=== PATIENT | male | born 1955 | race Asian ===

== ENCOUNTER → 2018-01-22 10:21 | Outpatient (CLI) | payer OTHER, SELFPAY ==
[2018-01-22 11:21] LABS: Hemoglobin A1C% w Est Avg Glu 8.5 % (4.0-6.0)
[2018-01-22 11:33] LABS: Alanine Aminotransferase 25 IU/L (21-72); Albumin 4.6 g/dL (3.5-5.0); Albumin Globulin Ratio 1.6 (1.0-2.8); Alkaline Phosphatase 58 U/L (38-126); Aspartate Aminotransferase 20 IU/L (17-59); BUN Creatinine Ratio 18.8 (6-22); Bilirubin Total 1.1 mg/dL (0.2-1.3); Calcium 9.4 mg/dL (8.4-10.2); Cholesterol 154 mg/dL (140-199); Estimated Glomerular Filt Rate > 60.0 mL/min (>60); Globulin 2.8 g/dL (1.7-4.1); Glucose 214 mg/dL (80-110); HDL Cholesterol 41 mg/dL (40-60); HEMOLYSIS < 15 (0-50); LDL Cholesterol Calculated 76 mg/dL (<100); Potassium 4.8 mmol/L (3.4-5.1); Sodium 139 mmol/L (137-145); Total Protein 7.4 g/dL (6.3-8.2); Triglycerides 187 mg/dL (35-150)
[2018-01-22 12:01] LABS: Prostate Specific Antigen Scrn 1.09 ng/mL (0.1-4.0)
== END ==
PROVIDERS: PCP Family Medicine; Visit Provider Family Medicine
DX: I10 Essential (primary) hypertension (principal); E11.9 Type 2 diabetes mellitus without complications; Z12.5 Encounter for screening for malignant neoplasm of prostate
CPT/HCPCS: 36415; 80053; 80061; 83036; G0103

== ENCOUNTER → 2018-04-27 10:37 | Outpatient (CLI) | payer OTHER, SELFPAY ==
[2018-04-27 11:45] LABS: Hemoglobin A1C% w Est Avg Glu 7.5 % (4.0-6.0)
[2018-04-27 11:47] LABS: Alanine Aminotransferase 34 IU/L (21-72); Albumin 4.5 g/dL (3.5-5.0); Albumin Globulin Ratio 1.5 (1.0-2.8); Alkaline Phosphatase 60 U/L (38-126); Aspartate Aminotransferase 31 IU/L (17-59); BUN Creatinine Ratio 16.7 (6-22); Bilirubin Total 1.1 mg/dL (0.2-1.3); Blood Urea Nitrogen 15 mg/dL (9-20); Calcium 9.3 mg/dL (8.4-10.2); Carbon Dioxide 26 mmol/L (22-32); Chloride 103 mmol/L (98-107); Estimated Glomerular Filt Rate > 60.0 mL/min (>60); Glucose 144 mg/dL (80-110); HEMOLYSIS < 15 (0-50); Potassium 4.2 mmol/L (3.4-5.1); Sodium 141 mmol/L (137-145); Total Protein 7.5 g/dL (6.3-8.2)
== END ==
PROVIDERS: Family Provider Family Medicine; PCP Family Medicine; Visit Provider Family Medicine
DX: E11.9 Type 2 diabetes mellitus without complications (principal)
CPT/HCPCS: 36415; 80053; 83036

== ENCOUNTER 2018-11-20 13:02 | Day surgery (SDC) | payer OTHER, SELFPAY ==
--- NOTE | 2018-11-20 | PATH_ITS ---
[facility] Accession Number: [id number] . 01 Material submitted: . COLON POLYP AT 10CM . 02 Diagnosis: Colon, Polyp At 10 CM, Biopsy: Tubular adenoma. [facility]/11/23/2018 . 02 Electronically signed: . Cailin Carpio MD, Pathologist NPI- [id number] . 01 Gross description: . Received one formalin-filled container labeled with the patient's name and labeled colon polyp at 10 cm. The specimen consists of a 0.6 cm portion of tissue and friable material, entirely submitted in one cassette. ([id number]) /FRR . 02 Pathologist provided ICD-10: D12.6 . 02 CPT . 059464 Performed at: 01 [facility] [address] [id number] MD Mauro Pandey MD Phone: [phone] Performed at: 02 [facility] [address] [place], [place] [id number] MD Cailin Carpio MD Phone: [phone]
[2018-11-20 13:25] VITALS: BMI 26.1
[2018-11-20 13:31] VITALS: BP 149/90; PULSE 67; RESP 15; TEMP 36.6; O2SAT 99
[2018-11-20] MEDS: SODIUM CHLORIDE 0.9% 1,000 ML 200 ML IV (13:41)
--- NOTE | 2018-11-20 13:55 | PM.HP.1 ---
History of Present Illness Date Patient Seen: 11/20/18 Time Patient Seen: 13:55 Chief complaint: [id number] Narrative: 63-year-old male who presents for colorectal screening. His last examination for such was many years ago. In fact, he states he did have a colonoscopy but it was at least 10 years or longer since that examination. On further history today he denies any gastrointestinal symptoms. No nausea, vomiting, loss of appetite, unexplained weight loss, abdominal pain, change in bowel habits, melena, hematochezia, bright red blood per rectum, diarrhea, or constipation. Patient History Medical History Asthma (Chronic Unknown) Diabetes (Chronic Unknown) Erectile dysfunction (Chronic Unknown) Hypertension (Chronic Unknown) Surgical History History of colonoscopy (Acute) Status post knee surgery Family History Father Hypertension Grandfather Hypertension Social History household members: spouse Smoking Status: Former smoker Family & Social History Family History Father Hypertension Grandfather Hypertension Social History: household members spouse Tobacco & Substance use: Smoking Status Former smoker Meds Home Medications Medication Instructions Recorded Confirmed Type PreserVision AREDS 1 sgl PO BID #0 05/15/16 11/20/18 History tadalafil 5 mg tablet 5 mg PO QDAY PRN tab 01/30/18 11/20/18 History Glucose: Test Strips #1 ea 05/01/18 11/20/18 History lancets #50 each 05/01/18 11/20/18 History metformin 500 mg tablet 1,000 mg PO BIDCC #120 tab 10/05/18 11/20/18 Rx losartan 25 mg tablet 25 mg PO QAM #90 tab 10/12/18 11/20/18 Rx glimepiride 1 mg tablet 2 mg PO BID #120 tab 11/08/18 11/20/18 Rx Allergies Allergy/AdvReac Type Severity Reaction Status Date / Time No Known Drug Allergies Allergy Verified 11/20/18 13:23 Review of Systems Review of Systems All systems reviewed & are unremarkable except as noted in HPI and below Exam Vital Signs (past 8 hours): - 11/20/18 13:31 Temperature 97.8 F Pulse Rate 67 Respiratory Rate 15 Blood Pressure 149/90 H Pulse Oximetry 99 Oxygen Delivery Method Room Air Narrative Exam Narrative: Well-nourished well-developed male in no acute distress. Alert oriented x3. Neck supple Regular rate rhythm. No audible wheezes Abdomen soft, nondistended, nontender Extremities show no clubbing or cyanosis Objective Labs Labs: No recent laboratory or radiographic studies for review. Fingerstick blood sugar today was 181. Assessment & Plan Assessment & Plan narrative: 63-year-old male requiring colorectal screening. Last endoscopy was well over 10 years ago. Colonoscopy is once again currently recommended. Technical details of the procedure were discussed. Risks, benefits, alternatives were explained. Risks including but not limited to sedation, aspiration, bleeding, pain, missed lesion, incomplete examination, need for further radiographic studies, colonic perforation, need for major abdominal surgery, and all attendant risks of major surgery were explained in detail. All questions were answered to his satisfaction, and he voiced understanding. Consent was placed on the chart. We will proceed as above.
--- NOTE | 2018-11-20 13:58 | PM.PREOP ---
Pre-operative Note Interval Note History & Physical reviewed/Exam performed by Physician: Yes Changes to H&P: No H&P completed within 30 days and has changed as indicated here:: Patient seen and examined in the preoperative area today. History and physical examination placed on the chart. Obviously, no changes in the last 15 min. Proceed with colonoscopy today as planned. ASA Class (for procedural sedation): II
[2018-11-20] MEDS: MIDAZOLAM 5 MG/5 ML VIAL IV (14:09)
[2018-11-20] MEDS: fentaNYL 250 MCG/5 ML INJ IV (14:10)
--- NOTE | 2018-11-20 14:21 | PM.OP.ENDO ---
Operative Date/Time/Diagnoses Date of procedure: 11/20/18 Time of procedure: 14:21 Pre-op diagnosis: Colorectal screening Post-op diagnosis: other (Rectal polyp but otherwise normal colon and rectum) Procedure & Clinicians Study performed: 1. Sedation per surgeon 2. Colonoscopy with hot snare polypectomy Same procedure as scheduled: Yes Indications: 63-year-old male who presents for colorectal screening. Last examination was over 10 years ago. Colonoscopy is currently recommended. Surgeon: Shaheen Beatty Procedure Notes SCOAP/Timeout: Yes Procedure in detail: After obtaining informed consent, the patient was brought to the GI suite and placed in the left lateral decubitus position on the examination table. After placement of appropriate monitors, the patient was given incremental doses of Versed and Fentanyl until an appropriate level of sedation was achieved. A time out was held per SCOAP protocol. A digital rectal examination was performed and did not reveal any masses or obstructing lesions. The colonoscope was gently passed into the patient's anus and the entire colon navigated to the level of the cecum with minimal difficulty. Terminal ileum was intubated and noted to be grossly normal. Once in the cecum, the scope was withdrawn being sure to go before and beyond all mucosal folds and prominences and get an excellent examination. The findings are noted above. At the level of the rectal vault, the scope was retroflexed and the internal anal canal was examined. The scope was straightened and air aspirated from the colon. The instrument was removed from the patient's body and the procedure was concluded. The patient was allowed to awaken from sedation without difficulty and taken to the post-anesthesia care unit in good condition. Scope withdrawal time: 11:31 min Sedation minutes: 19 Findings: polyp Specimen(s): other (Rectal polyp at 10 cm) Complications: none Recommendations: Colonscopy in 5 years, High fiber diet and Will call with biopsy results Plan for aftercare: 1. Discharge home Follow up: as needed Disposition: PACU
[2018-11-20 14:24] VITALS: BP 127/80; PULSE 64; RESP 17; TEMP 36.4; O2SAT 96
[2018-11-20 14:28] VITALS: BP 121/81; PULSE 63; RESP 14; O2SAT 94
[2018-11-20 14:34] VITALS: BP 126/77; PULSE 63; RESP 14; O2SAT 93
[2018-11-20 14:39] VITALS: BP 117/85; PULSE 60; RESP 17; O2SAT 95
--- NOTE | 2018-11-20 14:49 | SUR.PHASEII ---
Pt drowsy. Declined po intake. Call light within reach. Spouse called by phone and notified of patient status.
[2018-11-20 15:01] VITALS: BP 131/81; PULSE 59; TEMP 36.4; O2SAT 97
== END 2018-11-20 13:07 | disposition home or self-care (01) ==
PROVIDERS: Visit Provider Surgery
PROC: 0DJD8ZZ Inspection of Lower Intestinal Tract, Via Natural or Artificial Opening Endoscopic (ICD-10-PCS; CPT 45378; principal; 2018-11-20 15:00)
DX: Z12.11 Encounter for screening for malignant neoplasm of colon (principal); D12.8 Benign neoplasm of rectum; J45.909 Unspecified asthma, uncomplicated; E11.9 Type 2 diabetes mellitus without complications; I10 Essential (primary) hypertension; Z79.84 Long term (current) use of oral hypoglycemic drugs; Z87.891 Personal history of nicotine dependence
CPT/HCPCS: 45385; 88305; 99152; J2250; J3010

== ENCOUNTER → 2020-03-13 14:26 | Outpatient (CLI) | payer OTHER, SELFPAY ==
[2020-03-15 12:18] LABS: COVID19 Sendout Not Detected (Not Detected)
== END ==
PROVIDERS: PCP Family Medicine; Visit Provider Physician Assistant
DX: Z03.818 Encounter for observation for suspected exposure to other biological agents ruled out (principal)
CPT/HCPCS: 87635

== ENCOUNTER → 2021-04-25 13:00 | Outpatient (CLI) | payer MEDICARE, OTHER, SELFPAY ==
[2021-04-25 15:57] LABS: COVID19 -Nasal RAPID Negative (Negative)
== END ==
PROVIDERS: PCP Family Medicine; Visit Provider Nurse Practitioner
DX: Z20.822 Contact with and (suspected) exposure to COVID-19 (principal)
CPT/HCPCS: 87635; C9803

== ENCOUNTER 2022-08-26 09:21 | Emergency (ER) | payer MEDICARE, OTHER, SELFPAY ==
[2022-08-26 09:36] VITALS: BP 139/91; PULSE 82; RESP 14; TEMP 36.5; O2SAT 99; BMI 22.3
[2022-08-26] MEDS: METOCLOPRAMIDE 10 MG/2 ML INJ IV (12:37)
[2022-08-26 12:39] VITALS: BP 133/91; PULSE 84; RESP 16; O2SAT 96
--- NOTE | 2022-08-26 13:21 | ED_ITS ---
HPI - Recheck/Abnormal Lab/Rx <Mandeep Hartmann PA-C - Last Filed: 08/26/22 13:33> General Chief Complaint: Recheck/Abnormal Lab/Rx Stated Complaint: hicups since Friday night Time Seen by Provider: 08/26/22 12:16 Source: patient Mode of arrival: Ambulatory History of Present Illness HPI narrative: 67-year-old male with past medical history hypertension, diabetes presents to the ED with 4 days of intractable hiccups. Patient states that he has been experiencing nonstop hiccups for the past 4 days with no relief. Patient denies a history of acid reflux, GERD, however he does know that he has a feeling of frequent phlegm in his throat, despite having no cold symptoms. Patient states that the phlegm sensation has been ongoing for several months. Patient denies any other symptoms including fever, chills, cough, rhinorrhea, chest pain, shortness of breath, nausea, vomiting, abdominal pain. Patient denies any ear pain, changes in hearing. Related Data Home Medications Medication Instructions Recorded Confirmed vitamins A,C,T-tkss-wdtdcp 14,320 1 sgl PO BID ##0 05/15/16 11/20/18 unit-226 mg-200 unit capsule (PreserVision AREDS) tadalafil 5 mg tablet (Cialis) 5 mg PO QDAY PRN sexual activity 01/30/18 11/20/18 Glucose: Test Strips #1 ea 05/01/18 11/20/18 lancets (Accu-Chek Softclix #50 ea 05/01/18 11/20/18 Lancets) Previous Rx's Medication Instructions Recorded metformin 500 mg tablet 1,000 mg PO BIDCC #120 tabs 10/05/18 (Glucophage) losartan 25 mg tablet (Cozaar) 25 mg PO QAM #90 tabs 10/12/18 glimepiride 1 mg tablet (Amaryl) 2 mg PO BID #120 tabs 11/08/18 metoclopramide HCl 10 mg tablet 10 mg PO Q8HR PRN nausea and 08/26/22 (Reglan) vomiting #30 tabs Allergies Allergy/AdvReac Type Severity Reaction Status Date / Time No Known Drug Allergies Allergy Verified 08/26/22 09:40 Review of Systems <Mandeep Hartmann PA-C - Last Filed: 08/26/22 13:33> Review of Systems ROS Unobtainable: All systems reviewed & are unremarkable except as noted in HPI and below Constitutional Constitutional: Denies chills, Denies fatigue, Denies fever(s), Denies frequent falls, Denies lethargy and Denies weakness Comments: Intractable Hiccups Eyes Eyes: Denies change in vision, Denies eye discharge, Denies irritation and Denies loss of vision ENT Ears, Nose, Mouth, and Throat: Denies change in voice, Denies dizziness, Denies neck pain, Denies sore throat and Denies throat swelling Cardiovascular Cardiovascular: Denies chest pain, Denies irregular heart rhythm, Denies lightheadedness, Denies palpitations, Denies dyspnea, Denies dyspnea on exertion and Denies orthopnea Respiratory Respiratory: Denies cough, Denies dyspnea, Denies dyspnea on exertion and Denies wheezing Gastrointestinal Gastrointestinal: Denies abdominal pain, Denies change in bowel habits, Denies diarrhea, Denies nausea and Denies vomiting Genitourinary Genitourinary: Denies hematuria, Denies flank pain, Denies urinary incontinence and Denies urinary urgency Musculoskeletal Musculoskeletal: Denies back pain, Denies muscle weakness, Denies neck pain, Denies numbness and Denies tingling Integumentary/Breasts Skin/Breast: Denies pruritus, Denies erythema, Denies rash and Denies wounds Neurologic Neurologic: Denies behavioral changes, Denies confusion, Denies dizziness, Denies frequent falls, Denies loss of vision, Denies numbness, Denies tingling and Denies weakness Psychiatric Psychiatric: Denies anxiety, Denies behavioral changes, Denies confusion, Denies depression, Denies homicidal ideation and Denies suicidal ideation Endocrine Endocrine: Denies fatigue, Denies flushing and Denies palpitations Hematologic/Lymphatic Hematologic/Lymphatic: Denies easy bruising Allergic/Immunologic Allergic/Immunologic: Denies urticaria, Denies throat swelling and Denies wheezing Patient History <Mandeep Hartmann PA-C - Last Filed: 08/26/22 13:33> Medical History Asthma (Unknown) Diabetes (Unknown) Erectile dysfunction (Unknown) Hypertension (Unknown) Surgical History History of colonoscopy Status post knee surgery Family History Father Hypertension Grandfather Hypertension Social History household members: spouse Smoking Status: Former smoker Smoking Status: Former smoker alcohol intake frequency: 0-2 drinks per day Substance Use Type: does not use Exam <Mandeep Hartmann PA-C - Last Filed: 08/26/22 13:33> Narrative Exam Narrative: Const General:?cooperative, healthy appearing and comfortable [facility] Head:?normal to inspection Ears:?hearing grossly normal bilaterally Nose:?external nose normal Face and sinus:?normal facial exam and sinuses nontender Mouth:?oral mucosae normal Throat:?posterior oropharynx normal Eyes General:?appearance normal, both eyes and all related structures Neck Neck:?normal visual inspection and no lymphadenopathy noted Resp Effort & Inspection:?normal respiratory effort Auscultation:?clear to auscultation bilaterally Cardio Rate:?regular rate Rhythm:?regular rhythm Neuro General:?patient alert, patient awake and patient oriented x3 Initial Vital Signs Initial Vital Signs: Vital Signs Temperature 97.7 F 08/26/22 09:36 Pulse Rate 82 08/26/22 09:36 Respiratory Rate 14 08/26/22 09:36 Blood Pressure 139/91 H 08/26/22 09:36 Pulse Oximetry 99 08/26/22 09:36 Oxygen Delivery Method 08/26/22 09:36 <Dina Lockwood DO - Last Filed: 08/27/22 09:20> Initial Vital Signs Initial Vital Signs: Vital Signs Temperature 97.7 F 08/26/22 09:36 Pulse Rate 82 08/26/22 09:36 Respiratory Rate 14 08/26/22 09:36 Blood Pressure 139/91 H 08/26/22 09:36 Pulse Oximetry 99 08/26/22 09:36 Oxygen Delivery Method 08/26/22 09:36 Course <Mandeep Hartmann PA-C - Last Filed: 08/26/22 13:33> Orders Ordered: Discontinued Medications Metoclopramide HCl (Metoclopramide 10 Mg/2 Ml Inj) 10 mg IV NOW ONE Stop: 08/26/22 12:16 Last Admin: 08/26/22 12:37 Dose: 10 mg Documented By: HUGO Vital Signs Vital signs: Vital Signs - 8 hr 08/26/22 09:36 08/26/22 12:39 Temperature 97.7 F Pulse Rate 82 84 Respiratory Rate 14 16 Blood Pressure 139/91 H 133/91 H Pulse Oximetry 99 96 Oxygen Delivery Method Room Air Room Air <Dina Lockwood DO - Last Filed: 08/27/22 09:20> Orders Ordered: Discontinued Medications Metoclopramide HCl (Metoclopramide 10 Mg/2 Ml Inj) 10 mg IV NOW ONE Stop: 08/26/22 12:16 Last Admin: 08/26/22 12:37 Dose: 10 mg Documented By: HUGO Vital Signs Vital signs: Vital Signs - 8 hr 08/26/22 09:36 08/26/22 12:39 Temperature 97.7 F Pulse Rate 82 84 Respiratory Rate 14 16 Blood Pressure 139/91 H 133/91 H Pulse Oximetry 99 96 Oxygen Delivery Method Room Air Room Air MDM - Recheck/Abnormal Lab/Rx <Mandeep Hartmann PA-C - Last Filed: 08/26/22 13:33> [facility] Narrative Medical decision making narrative: 67-year-old male with past medical history hypertension, diabetes presents to the ED with 4 days of intractable hiccups. No foreign objects noted in bilateral ears on exam. Likely patient's symptoms caused due to acid reflux. Recommend Pepcid AC twice daily for the next 2-3 weeks. Also recommend Reglan up to 3 times a day if symptoms recur. ED return precautions were discussed with patient. Patient verbalized understanding. Discharge Plan Departure Patient Disposition: Home Clinical Impression: Hiccups Instructions: DI for Hiccups Activity Restrictions/Additional Instructions: Were evaluated in the ED today for persistent hiccups for the past 4 days. Your symptoms resolved while you were in the emergency room, you were also given a dose of Reglan. The frequent phlegm that you feel in your throat could be caused due to acid reflux, which can also be a factor to aggravate hiccups. You may take Pepcid AC twice daily, once before breakfast and once before dinner for the next 2-3 weeks, which will control the acid production. You may also take Reglan 3 times a day if your hiccups reoccur. Return to the ED if you have any chest pain, shortness of breath. Prescriptions: New metoclopramide HCl [Reglan] 10 mg tablet 10 mg PO Q8HR PRN (Reason: nausea and vomiting) Qty: 30 0RF No Action tadalafil [Cialis] 5 mg tablet 5 mg PO QDAY PRN (Reason: sexual activity) (DME) Glucose: Test Strips 0 .Route .MEDSUPPLY Qty: 1 Label Comments: Use to test blood glucose once daily. Rx Instructions: As directed (DME) lancets [Accu-Chek Softclix Lancets] misc See Dose Instructions .ROUTE .MEDSUPPLY Qty: 50 Rx Instructions: once daily PreserVision AREDS 1 EACH capsule 1 sgl PO BID Qty: 0 metformin [Glucophage] 500 mg tablet 1,000 mg PO BIDCC Qty: 120 1RF losartan [Cozaar] 25 mg tablet 25 mg PO QAM Qty: 90 0RF glimepiride [Amaryl] 1 mg tablet 2 mg PO BID Qty: 120 0RF Referrals: Mercedes Hayes DO [Primary Care Provider] - Visit Report Forms: Patient Portal/API <Dina Lockwood DO - Last Filed: 08/27/22 09:20> Cosign ED Attending Daciaature Attestation: I was immediately available in the department for consultation. Documentation has been reviewed. I agree with assessment and plan.
== END 2022-08-26 13:25 | disposition home or self-care (01) ==
PROVIDERS: Emergency Provider Student in an Organized Health Care Education/Training Program; PCP Family Medicine
DX: R06.6 Hiccough (principal)
CPT/HCPCS: 96374; 99283; J2765

== ENCOUNTER → 2023-01-21 11:17 | Outpatient (CLI) | payer MEDICARE, OTHER, SELFPAY | PROVIDERS: PCP Nurse Practitioner Family; Referring Provider Orthopaedic Surgery Foot and Ankle Surgery; Visit Provider Orthopaedic Surgery Foot and Ankle Surgery | DX: Z01.818 Encounter for other preprocedural examination (principal) | CPT/HCPCS: 93005 ==

== ENCOUNTER 2023-03-07 06:17 | Day surgery (SDC) | payer MEDICARE, OTHER, SELFPAY ==
[2023-02-27 13:26] VITALS: BMI 24.3
[2023-03-07] VITALS (13 sets, daily range): BP systolic 93–140; BP diastolic 59–90; PULSE 66–89; RESP 12–21; TEMP 36.1–36.6; O2SAT 94–100; BMI 24.3
--- NOTE | 2023-03-07 06:00 | DI.RAD.S_ITS ---
PROCEDURE: XR KNEE LT 1TO2V INDICATIONS: tka TECHNIQUE: 2 view(s) of the knee acquired. COMPARISON: [facility] [place], XR KNEE ARTHRITIC SERIES BI, 01/14/2023, 13:52. FINDINGS: Bones: Patient is status post knee joint arthroplasty. Hardware components are in expected positions. Visualized bony structures are intact. Soft tissues: Overlying postoperative changes are noted. IMPRESSION: Postsurgical changes following knee arthroplasty. There is soft tissue edema. Dictated by: Jair Acharya M.D. on 03/07/2023 at 13:51 Approved by: Jair Acharya M.D. on 03/07/2023 at 13:51
[2023-03-07] MEDS: LACTATED RINGERS 1,000 ML 42 ML IV ×2 (07:22→08:52)
[2023-03-07] MEDS: PREGABALIN 75 MG CAPSULE PO (07:22)
[2023-03-07] MEDS: ACETAMINOPHEN 325 MG TABLET 975 MG PO (07:22)
[2023-03-07] MEDS: CELECOXIB 200 MG CAPSULE PO (07:22)
--- NOTE | 2023-03-07 07:28 | PM.PREOP ---
Pre-operative Note Interval Note History & Physical reviewed/Exam performed by Physician: Yes Changes to H&P: No
[2023-03-07] MEDS: CEFAZOLIN 2 GM/100 ML PREMIX 100 ML IV (07:53)
[2023-03-07] MEDS: BUPIVACAINE LIPOSOME 266 MG/20 ML VIAL INJ (08:19)
[2023-03-07] MEDS: BUPIVACAINE 0.5% W/ EPI (PF) 30 ML VIAL INJ (08:21)
--- NOTE | 2023-03-07 08:23 | SUR.OPER ---
Supine on padded OR bed. Pillow under head, arms secured on padded armboards <90 degree abduction. Safety belt across torso. Non-operative leg secured with tape over blanket over lower leg. Operative leg secured in [place]. Foam padded brace at thigh of operative leg.
--- NOTE | 2023-03-07 10:36 | P.OP_ITS ---
Operative Date/Time/Diagnoses Date of procedure: 03/07/23 Time of procedure: 10:36 Pre-op diagnosis: Knee arthritis left M17.12 Post-op diagnosis: same Procedure & Clinicians Procedure: Total knee arthroplasty left CPT code 19529 Same procedure as scheduled: Yes Indications: The patient is a 67-year-old male with end-stage [id number] arthritis of the left knee with varus deformity. He is failed conservative treatment with bracing, physical therapy, oral medications, injectables and has been indicated for total knee arthroplasty. The risks and benefits of the procedure have been discussed with the patient and given the opportunity to ask questions. The risks of surgery include but are not limited to infection, malunion, nonunion, persistence of pain, damage to nerves and blood vessels, posttraumatic arthritis, DVT, PE, coardiopulmonary complications and . The patient expressed a thorough understanding of the risks and benefits of surgery and has elected to proceed. Consent was signed. During the operation, the services of a physician surgical instruments inspector were medically indicated and necessary to provide the exposure of the operative site for the surgical procedure and to maintain the limb in a proper position to carry out the operation safely and efficiently. Without a qualified drug safety assistant being present this would extended the operative procedure and made the procedure technically more difficult to perform. Surgeon: Karla Chandra Director Of Diagnostic Imaging: Kamala Oro Anesthesia Type: General, Spinal and Local Operative Notes Findings: End-stage full-thickness cartilage loss medial and patellofemoral cart apartments. Large osteophytes tricompartmental arthritis. Closure Type: primary Specimen(s): none sent Prosthetic devices, grafts, tissues, transplants, or devices: Holcomb and nephew journey bcs 2 Femur Oxinium size 6 Tibia size 6 Poly 11 mm Patella 35 x 9 round Estimated Blood Loss (mL): 50 Blood products transfused: none Tourniquet time (min): 102 Procedure in detail: Patient was seen in the preoperative area where the patient and site of surgery were identified in the operative knee was marked informed consent confirmed. This was the left knee. Patient received the appropriate preoperative antibiotics this was 2 g of Ancef. And other preoperative medications and was taken to the operating room placed on operating table in the supine position. Spinal anesthetic were administered. The operative extremity was then prepped and draped in the standard sterile fashion with a nonsterile tourniquet high on the thigh. Patient was placed on the green foam bolsters. A lateral post was placed at the level of the proximal thigh /trochanter area as a lateral post. Formal time-out procedure was performed confirming the patient's side and site of surgery and administration of appropriate preoperative antibiotics and implants were in the room accounted for. All were in agreement. Patient received a preoperative dose of tranexamic acid and then a 2nd dose at tourniquet release Patient was prepped and draped in the standard sterile fashion and the foot was placed into the [facility] leg dolan. This was taken into high flexion and the incision was marked out over the anterior knee to the level of the medial tubercle tubercle. The Esmarch was then used for exsanguination and the tourniquet was inflated to 250 mmHg. Was made through the skin and subcutaneous tissue in high flexion this was then brought down into 30? of flexion for the medial parapatellar arthrotomy. A marker pen was used to david the arthrotomy site for later repair. Joint fluid was evacuated. The anterior osteophytes and soft tissues were removed. Routine medial release was initially made along the medial proximal tibia with Bovie. The patella was 1st cut using the saw sized and prepped and then subluxed throughout the case and protected. The leg was then taken into extension and the patella was everted and the patella was cut to accommodate the patellar button. This was sized to a 35 mm button for a 9 mm thickness to recreate the original dimensions of the patella. Poly was removed and the protector replaced and the patella was subluxed and the knee was taken back up into flexion and attention was returned to the femur. Then the rotational landmarks of Whitesides line and the trans epicondylar axis were marked on the femur with electrocautery. Then the intramedullary guide for the femur was created. The distal femoral cut was made in 6? of valgus using the intramedullary guide with the cut setting on 0+ as the patient did not have a preoperative flexion contracture. The ACL and PCL released. The proximal tibia was then cut using the intramedullary guide, taking 9 mm off the less involved side this was the lateral plateau. The David wing was used to check the slope through the guide. Second pass was made through the tibial cut guide with the saw after the cut tibia was removed plane down about 1 more mm and further smooth then the resection surface. In extension remainders of the medial and lateral menisci were removed. The extension flexion gaps were then checked using both the flexion extension blocks. And was selected for a11 mm poly femur was then sized and the rotation set using the posterior condyle referencing 3? of external rotation. This measured a size 6. Cut block was then placed and the anterior, posterior and chamfer cuts were then made. The posterior osteophytes and soft tissues were then removed. Then in extension the posterior capsule was injected with a mixture of 40 mL of 0.25% Marcaine and 20 mL of Exparel care to avoid excessive injection posterior laterally. The remainder of this was saved for the capsule and subcutaneous tissue and placed during cement curing. Attention was then returned to the tibia and this was prepared with the rotation set by the extramedullary guide. Lined up with the tibial crest and the 2nd toe. The tibial trial was then pinned in place and the trial femoral components were placed. Then the intercondylar notch was cut through the femoral trial to create the box this was done with the distal than the proximal drill and then the box cut distally and then proximally. Next the insert was placed and the trial poly placed. This was stable in flexion and extension and there was a 0- 135 degree range of motion. The tibia was then finished with the drill and flange cuts and then this was removed. All trials were removed. The wound and bone was irrigated with pulsatile lavage. This was then dried with a sponge. The components were verified and opened and the cement was mixed. Cement was applied to the components and then to the bone then the tibia was cemented in place 1st followed by the femur then the patella. Excess cement was removed. With care looking around the back of the knee. Remainder of the injection was injected around the capsule. trial poly was placed back in the leg was placed into extension for the patellar cementing. After this was cured approximately 15 minutes later and the dilute Betadine solution was placed for at least 3 minutes in the wound this was then irrigated out and the final poly was placed. This was a 11 mm poly. The tourniquet was released hemostasis was achieved. Final 1 g of tranexamic acid was given IV at the time of tourniquet release. The capsule was closed with 1. Ethibond suture. Subcutaneous layer was closed with 3-0 Vicryl suture. Skin was closed with a running V lock suture Stratafix Monocryl type suture and Dermabond. An Aquacel dressing was placed. An Sam wrap was applied. Anesthetic was terminated the patient was woken from anesthesia and taken to recovery room in good condition. There no immediate complications from this procedure. The patient will be maintained on a standard total knee replacement protocol with weight-bearing as tolerated. Complications: none Post-operative Condition: stable Disposition: PACU Plan for aftercare: Weightbear as tolerated. Initiate outpatient physical therapy. Aspirin for DVT prophylaxis. Follow up in 2 weeks. May shower. No soaking of incision.
--- NOTE | 2023-03-07 10:45 | PM.PREOP ---
Pre-operative Note Interval Note History & Physical reviewed/Exam performed by Physician: Yes Changes to H&P: No
--- NOTE | 2023-03-07 12:08 | PC.NURSE ---
Day shift: Per MATERIAL REPROCESSING ASSOCIATE Pt to d/c home from PACU. Pt has not been to room 224 or been under this writers care at this time (2996).
--- NOTE | 2023-03-07 12:55 | SUR.PHASEII ---
1230 Bladder scanned. Greater than 200 ml x 4 scans. Pt still unable to stand well. I'm still wobbly. Pt has no sensation to urinate. Atempts to use urinal. - unsuccessful. at bedside. 1245 - #16 F indwelling catheter placed and secured. 700 ml clear yellow urine returned. Pt asleep. Resp even unlabored. Will continue to assess UOP
--- NOTE | 2023-03-07 13:22 | SUR.PHASEII ---
Dr Larose notified of pt's condition. ok to dc ferrera. will give dose of tamsulosin prior to discharge. pt instructed to go to ER if unable to void in 8 hours.
[2023-03-07] MEDS: OXYCODONE IR 5 MG TABLET PO (13:41)
[2023-03-07] MEDS: TAMSULOSIN 0.4 MG CAPSULE PO (13:54)
== END 2023-03-07 14:00 | disposition home or self-care (01) ==
LOC: OR 06:18 → AC 06:19
PROVIDERS: PCP Nurse Practitioner Family; Referring Provider Orthopaedic Surgery Foot and Ankle Surgery; Visit Provider Orthopaedic Surgery Foot and Ankle Surgery
PROC: 0SRD0JZ Replacement of Left Knee Joint with Synthetic Substitute, Open Approach (ICD-10-PCS; CPT 27447; principal; 2023-03-07 07:45)
DX: M17.12 Unilateral primary osteoarthritis, left knee (principal); M25.762 Osteophyte, left knee
CPT/HCPCS: 27447; 73560; 82962; C1776; C9290; J0690; J1885; J2405; J2704; J3010

== ENCOUNTER 2023-09-01 10:53 | Emergency (ER) | payer MEDICARE, OTHER, SELFPAY ==
[2023-09-01] VITALS (12 sets, daily range): BP systolic 133–158; BP diastolic 79–91; PULSE 80–98; RESP 12–14; TEMP 36.9; O2SAT 97–100; BMI 23.7
--- NOTE | 2023-09-01 11:32 | ED_ITS ---
HPI - Abdominal Pain General Chief Complaint: Abdominal Pain Stated Complaint: L/ ABD pain Time Seen by Provider: 09/01/23 11:21 Source: patient and family Mode of arrival: Ambulatory History of Present Illness HPI narrative: Patient 68-year-old male history of diabetes hyperlipidemia presenting today with left lower quadrant pain. He reports it has been there for about 2 days it kind of radiates to his flank. Does not radiate to his groin. Had decrease in appetite he threw up twice. Took some ibuprofen which did not help a lot with pain. No fever or chills. No chest pain. No painful or frequent urination. Related Data Home Medications Medication Instructions Recorded Confirmed vitamins A,C,F-ffzq-wpgygq 4,296 1 sgl PO BID ##0 05/15/16 03/07/23 mcg-226 mg-90 mg capsule (PreserVision AREDS) Glucose: Test Strips #1 ea 05/01/18 11/02/22 lancets (Accu-Chek Softclix #50 ea 05/01/18 11/02/22 Lancets) atorvastatin 10 mg tablet 10 mg PO DAILY 02/27/23 03/07/23 empagliflozin 25 mg tablet 25 mg PO QAM 02/27/23 03/07/23 ibuprofen 200 mg tablet (Advil) 400 mg PO Q4H 02/27/23 03/07/23 losartan 25 mg tablet (Cozaar) 50 mg PO QAM 02/27/23 03/07/23 metformin 1,000 mg tablet 1,000 mg PO BID 02/27/23 03/07/23 metoprolol tartrate 50 mg tablet 50 mg PO BID 02/27/23 03/07/23 semaglutide 1 mg/dose (2 mg/1.5 1 mg SUBCUT QWEEK 02/27/23 03/07/23 mL) subcutaneous pen injector (Ozempic) tamsulosin 0.4 mg capsule 0.4 mg PO BEDTIME 02/27/23 03/07/23 Previous Rx's Medication Instructions Recorded hydrocodone 5 mg-acetaminophen 325 1 tab PO Q6H PRN pain #15 tabs 09/01/23 mg tablet ondansetron 4 mg disintegrating 4 mg PO Q8H PRN nausea and 09/01/23 tablet vomiting #20 tabs Allergies Allergy/AdvReac Type Severity Reaction Status Date / Time No Known Drug Allergies Allergy Verified 09/01/23 11:10 Patient History Medical History HLD (hyperlipidemia) Intractable hiccups Acid reflux (08/26/22) Erectile dysfunction (Unknown) Hypertension (Unknown) Asthma (Unknown) Diabetes (Unknown) Surgical History Hx of eye surgery History of colonoscopy Status post knee surgery Family History Father Hypertension Grandfather Hypertension Social History household members: spouse Smoking Status: Former smoker alcohol intake: current Smoking Status: Former smoker alcohol intake frequency: 0-2 drinks per day Substance Use Type: does not use Exam Initial Vital Signs Initial Vital Signs: Vital Signs Temperature 98.4 F 09/01/23 11:06 Pulse Rate 90 09/01/23 11:06 Respiratory Rate 14 09/01/23 11:06 Blood Pressure 147/79 H 09/01/23 11:06 Pulse Oximetry 99 09/01/23 11:06 Oxygen Delivery Method Room Air 09/01/23 11:06 GENERAL: Alert well-appearing 68-year-old male and in no acute distress. HEENT: Head atraumatic,EOMI, pupils reactive, face symmetric, moist mucous membranes CARDIOVASCULAR: Regular rate and rhythm without murmurs, rubs or gallops. RESPIRATORY: Breath sounds equal bilaterally, no wheezes rales or rhonchi. ABDOMEN: Soft, left lower quadrant pain no guarding no rebound : No CVA tenderness EXTREMITIES: Normal range of motion, no clubbing or edema. Neurovascularly intact NEUROLOGICAL: Alert and oriented x4. SKIN: Warm, dry, no laceration, no petechiae, no rashes or lesions. Course Orders Ordered: ED Orders 09/01/23 11:10 EKG-12 Lead Stat 09/01/23 11:31 Complete Blood Count AUTO DIFF Stat Comprehensive Metabolic Panel Stat Lipase Stat 09/01/23 11:32 CT abdomen pelvis w con Stat 09/01/23 13:50 Urine Microscopic Stat Discontinued Medications Hydrocodone Bitart/Acetaminophen (Hydrocodone/Acet 5/325 Prepack) 1 bottle MISC DIRECTED ONE Stop: 09/01/23 14:18 Last Admin: 09/01/23 14:24 Dose: 1 bottle Documented By: ANDREW Sodium Chloride (Normal Saline 0.9%) 1,000 mls @ 1,000 mls/hr IV BOLUS ONE Stop: 09/01/23 13:35 Last Infusion: 09/01/23 14:02 Dose: Infused Documented By: Admin: 09/01/23 12:42 Dose: 1,000 mls/hr Documented By: ANDREW Ketorolac Tromethamine (Ketorolac 30 Mg/Ml Vial) 15 mg IV NOW ONE Stop: 09/01/23 11:33 Last Admin: 09/01/23 11:40 Dose: 15 mg Documented By: ANDREW Ondansetron HCl (Ondansetron 4 Mg Odt) 4 mg PO NOW PRN PRN Reason: Nausea And Vomiting Ondansetron HCl (Ondansetron 4 Mg/2 Ml Inj) 4 mg IV NOW PRN PRN Reason: Nausea And Vomiting Ondansetron HCl (Ondansetron 4 Mg Odt Prepack) 1 bottle MISC DIRECTED ONE Stop: 09/01/23 14:18 Last Admin: 09/01/23 14:24 Dose: 1 bottle Documented By: ANDREW Vital Signs Vital signs: Vital Signs - 8 hr 09/01/23 11:06 09/01/23 11:13 09/01/23 11:13 Temperature 98.4 F Pulse Rate 90 94 H Respiratory Rate 14 Blood Pressure 147/79 H 145/82 H Pulse Oximetry 99 98 Oxygen Delivery Method Room Air 09/01/23 11:30 09/01/23 11:30 09/01/23 12:00 Temperature Pulse Rate 98 H 91 H Respiratory Rate Blood Pressure 133/86 Pulse Oximetry 98 97 Oxygen Delivery Method 09/01/23 12:00 09/01/23 12:30 09/01/23 12:45 Temperature Pulse Rate 85 86 Respiratory Rate Blood Pressure 145/82 H Pulse Oximetry 98 100 Oxygen Delivery Method 09/01/23 12:45 09/01/23 13:00 09/01/23 13:00 Temperature Pulse Rate 85 Respiratory Rate Blood Pressure 142/86 H 145/88 H Pulse Oximetry 99 Oxygen Delivery Method 09/01/23 13:30 09/01/23 13:30 09/01/23 13:43 Temperature Pulse Rate 80 83 Respiratory Rate Blood Pressure 148/90 H Pulse Oximetry 99 99 Oxygen Delivery Method 09/01/23 14:26 09/01/23 14:27 09/01/23 14:30 Temperature Pulse Rate 81 81 Respiratory Rate 12 Blood Pressure 158/91 H 158/91 H Pulse Oximetry 99 98 Oxygen Delivery Method MDM - Abdominal Pain Lab Data 09/01/23 11:31 09/01/23 11:31 Labs: Lab Results 09/01/23 09/01/23 Range/Units 11:31 13:50 WBC 11.8 H (4.5-11.0) X10^3/uL RBC 4.92 (4.5-5.9) X10^6/uL Hgb 15.0 (13.5-17.5) g/dL Hct 44.2 (41-53) % MCV 89.8 (80-100) fL MCH 30.5 (26-34) PG MCHC 33.9 (30-36) % RDW 15.5 H (11.6-14.8) % Plt Count 226 (150-400) X10^3/uL Neut % (Auto) 84.6 H (50-75) % Lymph % (Auto) 4.9 L (25-40) % Boundary % (Auto) 9.6 (3-14) % Eos % (Auto) 0.1 L (2-4) % Baso % (Auto) 0.8 (0-2) % Neut # (Auto) 70322 H (3057-6761) /uL Lymph # (Auto) 600 L (9619-8347) /uL [place] # (Auto) 1100 H (0-900) /uL Eos # (Auto) 0 (0-450) /uL Baso # (Auto) 100 (0-100) /uL Sodium 130 L (137-145) mmol/L Potassium 4.4 (3.4-5.1) mmol/L Chloride 96 L (98-107) mmol/L Carbon Dioxide 24 (22-32) mmol/L BUN 26 H (9-20) mg/dL Creatinine 1.22 (0.66-1.25) mg/dL Estimated GFR > 60 (>60) mL/min BUN/Creatinine Ratio 21.3 (6-22) Glucose 181 H (80-110) mg/dL Calcium 9.4 (8.4-10.2) mg/dL Total Bilirubin 1.5 H (0.2-1.3) mg/dL AST 29 (17-59) IU/L ALT 21 (<50) IU/L Alkaline Phosphatase 55 (38-126) U/L Total Protein 7.8 (6.3-8.2) g/dL Albumin 4.5 (3.5-5.0) g/dL Globulin 3.3 (1.7-4.1) g/dL Albumin/Globulin Ratio 1.4 (1.0-2.8) Lipase 69 (23-300) U/L Urine RBC 0-1/hpf (0-5/HPF) Urine WBC None seen (0-5/HPF) Ur Squamous Epith Cells 0-1 /hpf (0-5/HPF) Urine Bacteria None seen (None) Ur Culture Indicated? Cult not indicated Point of care testing: Urine Dip Bedside Urine Glucose 1000 mg/dl Bedside Urine Bilirubin - Negative Bedside Urine Ketone +/- 5 Urine Specific [place] 1.015 Bedside Urine Occult Blood - Negative Bedside Urine pH 5.0 Bedside Urine Protein - Negative Bedside Urine Urobilinogen - Negative Bedside Urine Nitrite - Negative Bedside Urine Leukocytes - Negative Esterase Imaging Data CT scan - abdomen/pelvis: Radiologist's Impression: PROCEDURE: CT ABDOMEN PELVIS W CON INDICATIONS: LLQ pain TECHNIQUE: After the administration of oral and IV contrast, axial sections were acquired from the lung bases to the pubic symphysis. Coronal and sagittal reformats were performed. For radiation dose reduction, the following was used: automated exposure control, adjustment of mA and/or kV according to patient size. COMPARISON: None. FINDINGS: Image quality: Excellent. Lung bases: Unremarkable. Heart: No significant findings. ABDOMEN: Liver: Hepatic steatosis Gallbladder: No radiopaque gallstones or wall thickening. Biliary ducts: No biliary dilation. Pancreas: No ductal dilation. Spleen: Size is within normal limits. Adrenal Glands: No adrenal nodules. Kidneys and Ureters: Obstructing 5 mm stone (five hundred twenty-eight Hounsfield unit) in the proximal left ureter, resulting in severe hydronephrosis and significant fat stranding within the left pararenal space. Stomach and Bowel: Normal colonic caliber, without significant wall thickening. Colonic diverticulosis without evidence of diverticulitis. Peritoneum: No abnormal intraperitoneal fluid. No free air. Ventral Wall: No hernia. Abdominal Nodes: No retroperitoneal or mesenteric adenopathy by size criteria. Vessels: Aorta and inferior vena cava are normal in size. PELVIS: Pelvic Organs: Unremarkable. Bladder: Unremarkable. Pelvic Nodes: No enlarged lymph nodes. Miscellaneous: No inguinal hernias are seen. Bones: No aggressive osseous abnormality. IMPRESSION: Obstructing 5 mm stone in the proximal right ureter, resulting in severe hydronephrosis and significant fat stranding within the left pararenal space. Dictated by: Max Serrano M.D. on 09/01/2023 at 12:24 MDM Narrative Medical decision making narrative: Patient 68-year-old male who presents with left lower quadrant pain ongoing for last 2 days. He has had some nausea vomiting. Blood work leukocytosis 11.8, sodium 130, chloride 96, bicarb 24, BUN 26, creatinine 1 2, glucose 181 urinalysis negative for infection CT reviewed does show 5 mm proximal left ureteral stone with perinephric stranding and hydronephrosis Patient received Toradol here in the ED it has helped a little bit. Discussion of supportive care. He is already taking Flomax. At this time no need for antibiotics or intervention. Discharge Plan Departure Patient Disposition: Home Clinical Impression: Kidney stone on left side Instructions: DI for Kidney Stones Activity Restrictions/Additional Instructions: *You have been diagnosed with kidney stone *What to do: At this time increase fluids as tolerated eat as tolerated. I hope that you pass the stone within the next week. *Continue to take medications as directed-->sent to [facility] Motrin 600 mg every 8 hours Flomax daily as previously prescribed [place] 1 tablet every 4-6 hours if needed for severe pain Zofran 4 mg every 8 hours if needed for nausea or vomiting *Follow up with your primary care provider in 2-3 days or call [phone] *Return to ER if you should have increasing pain fever persistent vomiting or any new, worsening or concerning symptoms CONTROLLED SUBSTANCE DISCHARGE (Narcotoic/benzodiazepine/Flexeril/Phenergan) 1. You have been prescribed narcotic medications, it does have acetaminophen/Tylenol/paracetamol in it, DO NOT TAKE MORE THAN 4,00mg in 24 hours of Tylenol. TRAMADOL DOES NOT CONTAIN TYLENOL 2. Please understand that we cannot provide further refills of narcotics, benzodiazepines or controlled substances through the ED and her pain management will need to be through your provider. 3. While on these medications you cannot drive or operate heavy machinery. 4. You cannot sign legal documents or perform any duties such as this. 5. As long as you're taking opiate pain medications he should also be taking a stool softener such as Colace, Dulcolax, MiraLAX or prune juice, to help avoid constipation. Prescriptions: New hydrocodone-acetaminophen 5-325 mg tablet 1 tab PO Q6H PRN (Reason: pain) Qty: 15 0RF ondansetron 4 mg tablet,disintegrating 4 mg PO Q8H PRN (Reason: nausea and vomiting) Qty: 20 0RF No Action (DME) Glucose: Test Strips 0 .Route .MEDSUPPLY Qty: 1 Patient Comments: Use to test blood glucose once daily. Rx Instructions: As directed (DME) lancets [Accu-Chek Softclix Lancets] misc See Dose Instructions .ROUTE .MEDSUPPLY Qty: 50 Rx Instructions: once daily PreserVision AREDS 1 EACH capsule 1 sgl PO BID Qty: 0 atorvastatin 10 mg Tablet 10 mg PO DAILY tamsulosin 0.4 mg Capsule 0.4 mg PO BEDTIME metformin 1,000 mg Tablet 1,000 mg PO BID metoprolol tartrate 50 mg Tablet 50 mg PO BID ibuprofen [Advil] 200 mg Tablet 400 mg PO Q4H empagliflozin 25 mg Tablet 25 mg PO QAM Ozempic 1 mg/dose (2 mg/1.5 mL) Pen Injector 1 mg SUBCUT QWEEK losartan [Cozaar] 25 mg tablet 50 mg PO QAM Referrals: Miscellaneous,Doctor, MD [Primary Care Provider] - Stand Alone Forms: Patient Portal/API
--- NOTE | 2023-09-01 11:36 | PC.NURSE ---
patient took pain meds yesterday but vomited 3x yesterday and was not able to eat much. Today he is not vomiting but did gag this morning, without vomit. Is left lower side is tender to touch. He states no prior surgery to his ABD. He states that his bowel and bladder function are both normal.
[2023-09-01 11:37] LABS: Add Manual Diff / Slide Review NO; Basophils Absolute Auto 100 /uL (0-100); Basophils Percent Auto 0.8 % (0-2); Eosinophils Absolute Auto 0 /uL (0-450); Eosinophils Percent Auto 0.1 % (2-4); Hematocrit 44.2 % (41-53); Lymphocytes Absolute Auto 600 /uL (1100-4500); Lymphocytes Percent Auto 4.9 % (25-40); Mean Corpuscular HGB Conc 33.9 % (30-36); Mean Corpuscular Hemoglobin 30.5 PG (26-34); Mean Corpuscular Volume 89.8 fL (80-100); Monocytes Absolute Auto 1100 /uL (0-900); Monocytes Percent Auto 9.6 % (3-14); Neutrophils Absolute Auto 10000 /uL (1500-7000); Neutrophils Percent Auto 84.6 % (50-75); Platelet Count 226 X10^3/uL (150-400); Red Blood Cell Count 4.92 X10^6/uL (4.5-5.9); Red Cell Distribution Width 15.5 % (11.6-14.8); White Blood Cell Count 11.8 X10^3/uL (4.5-11.0)
[2023-09-01] MEDS: KETOROLAC 30 MG/ML VIAL 15 MG IV (11:40)
[2023-09-01 11:49] LABS: Alanine Aminotransferase 21 IU/L (<50); Albumin 4.5 g/dL (3.5-5.0); Albumin Globulin Ratio 1.4 (1.0-2.8); Alkaline Phosphatase 55 U/L (38-126); Aspartate Aminotransferase 29 IU/L (17-59); BUN Creatinine Ratio 21.3 (6-22); Bilirubin Total 1.5 mg/dL (0.2-1.3); Blood Urea Nitrogen 26 mg/dL (9-20); Calcium 9.4 mg/dL (8.4-10.2); Carbon Dioxide 24 mmol/L (22-32); Chloride 96 mmol/L (98-107); Estimated Glomerular Filt Rate > 60 mL/min (>60); Globulin 3.3 g/dL (1.7-4.1); Glucose 181 mg/dL (80-110); Lipase 69 U/L (23-300); Potassium 4.4 mmol/L (3.4-5.1); Sodium 130 mmol/L (137-145); Total Protein 7.8 g/dL (6.3-8.2)
[2023-09-01 11:55] LABS: HEMOLYSIS 63 (0-50)
[2023-09-01] MEDS: SODIUM CHLORIDE 0.9% 1,000 ML 1000 ML IV (12:42)
[2023-09-01 14:18] LABS: Bacteria Urine None Seen; Culture Indicated Urine Cult Not Indicated; RBC Urine 0-1/HPF (0-5/HPF); Squamous Epithelial Cell Urine 0-1 /HPF (0-5/HPF); WBC Urine None Seen (0-5/HPF)
[2023-09-01] MEDS: HYDROCODONE/ACET 5/325 PREPACK 1 BOTTLE MISC (14:24)
[2023-09-01] MEDS: ONDANSETRON 4 MG ODT PREPACK 1 BOTTLE MISC (14:24)
== END 2023-09-01 14:31 | disposition home or self-care (01) ==
PROVIDERS: Emergency Provider Emergency Medicine
DX: N20.0 Calculus of kidney (principal)
CPT/HCPCS: 36415; 74177; 80053; 81003; 81015; 83690; 85025; 93005; 96361; 96374; 99284; J1885; Q9967

== ENCOUNTER 2023-09-05 16:23 | Emergency (ER) | payer MEDICARE, OTHER, SELFPAY ==
[2023-09-05] VITALS (16 sets, daily range): BP systolic 106–138; BP diastolic 60–76; PULSE 77–98; RESP 17–19; TEMP 36.2; O2SAT 94–99; BMI 23.7
[2023-09-05 16:52] LABS: Appearance Urine UA CLEAR; Bilirubin Urine UA NEGATIVE (NEGATIVE); Color Urine UA YELLOW; Glucose Urine UA 3+ g/dL (Negative); Ketones Urine UA NEGATIVE (NEGATIVE); Leukocyte Esterase Urine UA NEGATIVE (NEGATIVE); Nitrite Urine UA NEGATIVE (Negative); Occult Blood Urine UA NEGATIVE (Negative); Protein Urine UA NEGATIVE (Negative); Urobilinogen Urine UA 0.2 E.U./dL (0.2)
[2023-09-05 16:55] LABS: Bacteria Urine None Seen; Culture Indicated Urine Cult Not Indicated; RBC Urine None Seen (0-5/HPF); Squamous Epithelial Cell Urine None Seen (0-5/HPF); WBC Urine None Seen (0-5/HPF)
--- NOTE | 2023-09-05 17:08 | DI.CT.S_ITS ---
PROCEDURE: CT KIDNEY URETER BLADDER (KUB) INDICATIONS: flank pain, h/o 5mm obstructing stone TECHNIQUE: Axial sections were acquired from the lung bases to the pubic symphysis. Coronal and sagittal reformats were performed. For radiation dose reduction, the following was used: automated exposure control, adjustment of mA and/or kV according to patient size. COMPARISON: [facility], CT, CT ABDOMEN PELVIS W CON, 09/01/2023, 12:03. FINDINGS: Image quality: Diagnostic. Lower Chest: Small left pleural effusion with atelectasis of the left lung base, which is new when compared to the prior CT. URINARY: Right Kidney: No stones or hydronephrosis. Right Ureter: No hydroureter. Left Kidney: Severe left hydronephrosis with increased perinephric fat stranding. Left Ureter: 5 mm calculus is again seen in unchanged position within the proximal left ureter with severe left hydronephrosis. Bladder: Normal wall thickness. No stones. ABDOMEN: Liver: No contour-deforming solid mass. Gallbladder: No radiopaque gallstones or wall thickening. Gallbladder is contracted. Biliary ducts: No biliary dilation. Pancreas: No ductal dilation. Spleen: Size is within normal limits. Adrenal Glands: No adrenal nodules. Stomach and Bowel: Normal colonic caliber, without significant wall thickening. Peritoneum: No abnormal intraperitoneal fluid. No free air. Ventral Wall: No hernia. Abdominal Nodes: No enlarged retroperitoneal or mesenteric lymph nodes. Vessels: Aorta and inferior vena cava are normal in size. PELVIS: Pelvic Organs: Unremarkable. Pelvic Nodes: Unremarkable. Miscellaneous: No inguinal hernias are seen. Bones: Unremarkable. IMPRESSION: 1. Left proximal ureteral 5 mm calculus is seen in unchanged position when compared to the CT from 09/01/2023. There is severe left hydronephrosis and worsening left perinephric fat stranding. 2. New small left pleural effusion. Approved by: Jeremy Hale M.D. on 09/05/2023 at 17:59
[2023-09-05] MEDS: KETOROLAC 30 MG/ML VIAL IV (18:04)
[2023-09-05] MEDS: ONDANSETRON 4 MG/2 ML INJ IV (18:04)
[2023-09-05 18:19] LABS: Add Manual Diff / Slide Review NO; Basophils Absolute Auto 0 /uL (0-100); Basophils Percent Auto 0.2 % (0-2); Eosinophils Absolute Auto 100 /uL (0-450); Eosinophils Percent Auto 1.4 % (2-4); Hematocrit 38.2 % (41-53); Hemoglobin 13.3 g/dL (13.5-17.5); Lymphocytes Absolute Auto 700 /uL (1100-4500); Mean Corpuscular HGB Conc 34.7 % (30-36); Mean Corpuscular Hemoglobin 30.6 PG (26-34); Mean Corpuscular Volume 88.2 fL (80-100); Monocytes Absolute Auto 800 /uL (0-900); Monocytes Percent Auto 9.5 % (3-14); Neutrophils Absolute Auto 7200 /uL (1500-7000); Neutrophils Percent Auto 80.9 % (50-75); Platelet Count 229 X10^3/uL (150-400); Red Blood Cell Count 4.33 X10^6/uL (4.5-5.9); Red Cell Distribution Width 15.2 % (11.6-14.8); White Blood Cell Count 8.8 X10^3/uL (4.5-11.0)
[2023-09-05 18:31] LABS: Alanine Aminotransferase 18 IU/L (<50); Albumin 3.6 g/dL (3.5-5.0); Albumin Globulin Ratio 1.2 (1.0-2.8); Alkaline Phosphatase 56 U/L (38-126); Aspartate Aminotransferase 23 IU/L (17-59); Bilirubin Total 0.6 mg/dL (0.2-1.3); Blood Urea Nitrogen 25 mg/dL (9-20); Calcium 8.9 mg/dL (8.4-10.2); Carbon Dioxide 25 mmol/L (22-32); Chloride 93 mmol/L (98-107); Estimated Glomerular Filt Rate 55 mL/min (>60); Globulin 3.1 g/dL (1.7-4.1); Glucose 251 mg/dL (80-110); HEMOLYSIS < 15 (0-50); Lipase 108 U/L (23-300); Sodium 126 mmol/L (137-145); Total Protein 6.7 g/dL (6.3-8.2)
--- NOTE | 2023-09-05 18:59 | ED_ITS ---
HPI - General Adult <Elliot Vazquez DO - Last Filed: 09/10/23 07:06> General Chief complaint: Urogenital-Male Stated complaint: Hx kidney stone T-4/worsening Time Seen by Provider: 09/05/23 17:55 Source: patient Mode of arrival: Family Vehicle History of Present Illness HPI narrative: Patient is a 68-year-old male. He was seen here in the emergency department proximally 4 days ago for left-sided flank pain. He was subsequently diagnosed with a 5 mm proximal left-sided ureteral stone. There was no issues with his kidney function or urinary tract infection. Sent home with symptom control and also Flomax. He has been taking these medications as directed. Since that time he states that his pain has not gone away in his actually worsened somewhat. He is now having chills. No vomiting. He contacted his primary doctor at the [facility] and they told him to increase his Flomax 0 now he is taking that 2 times a day. He is still urinating. He states he is just getting very uncomfortable and with the chills and no improvement of symptoms he came to the emergency department. Related Data Home Medications Medication Instructions Recorded Confirmed vitamins A,C,Y-dfhz-kkramc 4,296 1 sgl PO BID ##0 05/15/16 09/06/23 mcg-226 mg-90 mg capsule (PreserVision AREDS) atorvastatin 10 mg tablet 10 mg PO BEDTIME 02/27/23 09/06/23 empagliflozin 25 mg tablet 25 mg PO QAM 02/27/23 09/06/23 losartan 25 mg tablet (Cozaar) 50 mg PO QAM 02/27/23 09/06/23 metformin 1,000 mg tablet 1,000 mg PO BID 02/27/23 09/06/23 metoprolol tartrate 50 mg tablet 50 mg PO BID 02/27/23 09/06/23 semaglutide 1 mg/dose (2 mg/1.5 1 mg SUBCUT QWEEK 02/27/23 09/06/23 mL) subcutaneous pen injector (Ozempic) tamsulosin 0.4 mg capsule 0.4 mg PO BID 02/27/23 09/06/23 dorzolamide 2 % eye drops 1 drp EYE-BOTH QAM 09/06/23 09/06/23 lancing device 09/06/23 09/06/23 timolol maleate 0.5 % eye drops 1 drp EYE-BOTH DAILY 09/06/23 09/06/23 Previous Rx's Medication Instructions Recorded oxycodone-acetaminophen 5 mg-325 1 tab PO Q6H PRN pain #10 tabs 09/06/23 mg tablet (Percocet) tamsulosin 0.4 mg capsule (Flomax) 0.4 mg PO DAILY #7 caps 09/06/23 Allergies Allergy/AdvReac Type Severity Reaction Status Date / Time No Known Drug Allergies Allergy Verified 09/01/23 11:10 Review of Systems <Elliot Vazquez DO - Last Filed: 09/10/23 07:06> Review of Systems ROS Unobtainable: All systems reviewed & are unremarkable except as noted in HPI and below Patient History <Elliot Vazquez DO - Last Filed: 09/10/23 07:06> Medical History HLD (hyperlipidemia) Intractable hiccups Acid reflux (08/26/22) Erectile dysfunction (Unknown) Hypertension (Unknown) Asthma (Unknown) Diabetes (Unknown) Surgical History Hx of eye surgery History of colonoscopy Status post knee surgery Family History Father Hypertension Grandfather Hypertension Social History household members: spouse Smoking Status: Former smoker alcohol intake: current Smoking Status: Former smoker alcohol intake frequency: 0-2 drinks per day Substance Use Type: does not use Exam <Elliot Vazquez DO - Last Filed: 09/10/23 07:06> Initial Vital Signs Initial Vital Signs: Vital Signs Temperature 97.1 F L 09/05/23 16:33 Pulse Rate 94 H 09/05/23 16:33 Respiratory Rate 17 09/05/23 16:33 Blood Pressure 136/67 09/05/23 16:33 Pulse Oximetry 99 09/05/23 16:33 Oxygen Delivery Method Room Air 09/05/23 16:33 Const General: cooperative and No ill appearing HENMT Head: normal to inspection and normocephalic Resp Effort & Inspection: normal respiratory effort Auscultation: clear to auscultation bilaterally Cardio Rate: regular rate Rhythm: regular rhythm GI Inspection: normal to inspection and non-distended Neuro General: patient alert, patient awake and moves all extremities Extrem General: normal to inspection and capillary refill normal <Lonnie Gudino MD - Last Filed: 09/06/23 08:02> Initial Vital Signs Initial Vital Signs: Vital Signs Temperature 97.1 F L 09/05/23 16:33 Pulse Rate 94 H 09/05/23 16:33 Respiratory Rate 17 09/05/23 16:33 Blood Pressure 136/67 09/05/23 16:33 Pulse Oximetry 99 09/05/23 16:33 Oxygen Delivery Method Room Air 09/05/23 16:33 Course <Elliot Vazquez DO - Last Filed: 09/10/23 07:06> Orders Ordered: Discontinued Medications Enoxaparin Sodium (Enoxaparin 40 Mg/0.4 Ml Syringe) 40 mg SUBCUT DAILY [facility] Last Admin: 09/06/23 13:39 Dose: 40 mg Documented By: SPF Hydromorphone HCl (Hydromorphone 0.5 Mg Inj) 0.5 mg IV NOW ONE Stop: 09/05/23 20:42 Last Admin: 09/05/23 20:44 Dose: 0.5 mg Documented By: BB Sodium Chloride (Normal Saline 0.9%) 1,000 mls @ 125 mls/hr IV CONT [facility] Last Infusion: 09/06/23 10:53 Dose: Infused Documented By: Infusion: 09/06/23 08:45 Dose: 125 mls/hr Documented By: Infusion: 09/06/23 08:36 Dose: 0 mls/hr Documented By: Admin: 09/06/23 02:51 Dose: 125 mls/hr Documented By: Infusion: 09/06/23 02:51 Dose: Infused Documented By: Admin: 09/05/23 21:33 Dose: 125 mls/hr Documented By: BB Sodium Chloride (Normal Saline 0.9%) 1,000 mls @ 125 mls/hr IV CONT [facility] Last Infusion: 09/06/23 14:57 Dose: Infused Documented By: Admin: 09/06/23 10:59 Dose: 125 mls/hr Documented By: SPF Ketorolac Tromethamine (Ketorolac 30 Mg/Ml Vial) 30 mg IV NOW ONE Stop: 09/05/23 17:57 Last Admin: 09/05/23 18:04 Dose: 30 mg Documented By: VANESSA Ketorolac Tromethamine (Ketorolac 30 Mg/Ml Vial) 15 mg IV NOW ONE Stop: 09/06/23 14:38 Last Admin: 09/06/23 15:04 Dose: 15 mg Documented By: VANESSA Naloxone HCl (Naloxone 0.4 Mg/Ml Vial) 0.2 mg IV Q2MIN PRN PRN Reason: Opiate Reversal Ondansetron HCl (Ondansetron 4 Mg Odt) 4 mg SL NOW PRN PRN Reason: Nausea And Vomiting Ondansetron HCl (Ondansetron 4 Mg/2 Ml Inj) 4 mg IV NOW PRN PRN Reason: Nausea And Vomiting Last Admin: 09/05/23 18:04 Dose: 4 mg Documented By: VANESSA Vital Signs Vital signs: Vital Signs - 8 hr 09/05/23 23:30 09/05/23 23:30 09/06/23 00:00 Temperature Pulse Rate 78 Blood Pressure 127/71 117/66 Pulse Oximetry 97 09/06/23 00:00 09/06/23 00:30 09/06/23 00:30 Temperature Pulse Rate 82 82 Blood Pressure 126/64 Pulse Oximetry 98 95 09/06/23 00:59 09/06/23 01:02 09/06/23 01:05 Temperature 97.2 F L Pulse Rate 80 Blood Pressure 145/80 H Pulse Oximetry 84 L 09/06/23 01:05 09/06/23 01:30 09/06/23 01:30 Temperature Pulse Rate 86 82 Blood Pressure 130/70 Pulse Oximetry 98 96 09/06/23 02:00 09/06/23 02:00 09/06/23 02:30 Temperature Pulse Rate 81 Blood Pressure 125/68 133/75 Pulse Oximetry 98 09/06/23 02:30 09/06/23 03:00 09/06/23 03:00 Temperature Pulse Rate 76 77 Blood Pressure 116/71 Pulse Oximetry 99 96 09/06/23 03:30 09/06/23 03:30 09/06/23 04:00 Temperature Pulse Rate 74 Blood Pressure 119/81 135/82 Pulse Oximetry 92 09/06/23 04:00 09/06/23 04:30 09/06/23 04:30 Temperature Pulse Rate 71 71 Blood Pressure 128/81 Pulse Oximetry 98 99 09/06/23 05:00 09/06/23 05:00 09/06/23 05:30 Temperature Pulse Rate 71 73 Blood Pressure 123/74 Pulse Oximetry 96 99 09/06/23 05:30 09/06/23 06:00 09/06/23 06:00 Temperature Pulse Rate 71 Blood Pressure 117/76 121/73 Pulse Oximetry 98 09/06/23 06:30 09/06/23 06:30 Temperature Pulse Rate 70 Blood Pressure 122/72 Pulse Oximetry 97 <Lonnie Gudino MD - Last Filed: 09/06/23 08:02> Orders Ordered: Discontinued Medications Enoxaparin Sodium (Enoxaparin 40 Mg/0.4 Ml Syringe) 40 mg SUBCUT DAILY [facility] Last Admin: 09/06/23 13:39 Dose: 40 mg Documented By: SPF Hydromorphone HCl (Hydromorphone 0.5 Mg Inj) 0.5 mg IV NOW ONE Stop: 09/05/23 20:42 Last Admin: 09/05/23 20:44 Dose: 0.5 mg Documented By: BB Sodium Chloride (Normal Saline 0.9%) 1,000 mls @ 125 mls/hr IV CONT [facility] Last Infusion: 09/06/23 10:53 Dose: Infused Documented By: Infusion: 09/06/23 08:45 Dose: 125 mls/hr Documented By: Infusion: 09/06/23 08:36 Dose: 0 mls/hr Documented By: Admin: 09/06/23 02:51 Dose: 125 mls/hr Documented By: Infusion: 09/06/23 02:51 Dose: Infused Documented By: Admin: 09/05/23 21:33 Dose: 125 mls/hr Documented By: BB Sodium Chloride (Normal Saline 0.9%) 1,000 mls @ 125 mls/hr IV CONT [facility] Last Infusion: 09/06/23 14:57 Dose: Infused Documented By: Admin: 09/06/23 10:59 Dose: 125 mls/hr Documented By: SPF Ketorolac Tromethamine (Ketorolac 30 Mg/Ml Vial) 30 mg IV NOW ONE Stop: 09/05/23 17:57 Last Admin: 09/05/23 18:04 Dose: 30 mg Documented By: VANESSA Ketorolac Tromethamine (Ketorolac 30 Mg/Ml Vial) 15 mg IV NOW ONE Stop: 09/06/23 14:38 Last Admin: 09/06/23 15:04 Dose: 15 mg Documented By: VANESSA Naloxone HCl (Naloxone 0.4 Mg/Ml Vial) 0.2 mg IV Q2MIN PRN PRN Reason: Opiate Reversal Ondansetron HCl (Ondansetron 4 Mg Odt) 4 mg SL NOW PRN PRN Reason: Nausea And Vomiting Ondansetron HCl (Ondansetron 4 Mg/2 Ml Inj) 4 mg IV NOW PRN PRN Reason: Nausea And Vomiting Last Admin: 09/05/23 18:04 Dose: 4 mg Documented By: VANESSA Vital Signs Vital signs: Vital Signs - 8 hr 09/05/23 23:30 09/05/23 23:30 09/06/23 00:00 Temperature Pulse Rate 78 Blood Pressure 127/71 117/66 Pulse Oximetry 97 09/06/23 00:00 09/06/23 00:30 09/06/23 00:30 Temperature Pulse Rate 82 82 Blood Pressure 126/64 Pulse Oximetry 98 95 09/06/23 00:59 09/06/23 01:02 09/06/23 01:05 Temperature 97.2 F L Pulse Rate 80 Blood Pressure 145/80 H Pulse Oximetry 84 L 09/06/23 01:05 09/06/23 01:30 09/06/23 01:30 Temperature Pulse Rate 86 82 Blood Pressure 130/70 Pulse Oximetry 98 96 09/06/23 02:00 09/06/23 02:00 09/06/23 02:30 Temperature Pulse Rate 81 Blood Pressure 125/68 133/75 Pulse Oximetry 98 09/06/23 02:30 09/06/23 03:00 09/06/23 03:00 Temperature Pulse Rate 76 77 Blood Pressure 116/71 Pulse Oximetry 99 96 09/06/23 03:30 09/06/23 03:30 09/06/23 04:00 Temperature Pulse Rate 74 Blood Pressure 119/81 135/82 Pulse Oximetry 92 09/06/23 04:00 09/06/23 04:30 09/06/23 04:30 Temperature Pulse Rate 71 71 Blood Pressure 128/81 Pulse Oximetry 98 99 09/06/23 05:00 09/06/23 05:00 09/06/23 05:30 Temperature Pulse Rate 71 73 Blood Pressure 123/74 Pulse Oximetry 96 99 09/06/23 05:30 09/06/23 06:00 09/06/23 06:00 Temperature Pulse Rate 71 Blood Pressure 117/76 121/73 Pulse Oximetry 98 09/06/23 06:30 09/06/23 06:30 Temperature Pulse Rate 70 Blood Pressure 122/72 Pulse Oximetry 97 Medical Decision Making <Elliot Vazquez DO - Last Filed: 09/10/23 07:06> Medical Records Medical records reviewed: Yes I reviewed the patient's medical records. Lab Data Lab results reviewed: Yes I reviewed the patient's lab results. 09/06/23 11:55 09/06/23 11:55 Labs: Lab Results 09/05/23 09/05/23 09/06/23 Range/Units 16:49 18:10 11:55 WBC 8.8 7.8 (4.5-11.0) X10^3/uL RBC 4.33 L 4.33 L (4.5-5.9) X10^6/uL Hgb 13.3 L 13.2 L (13.5-17.5) g/dL Hct 38.2 L 38.9 L (41-53) % MCV 88.2 89.9 (80-100) fL MCH 30.6 30.6 (26-34) PG MCHC 34.7 34.0 (30-36) % RDW 15.2 H 15.3 H (11.6-14.8) % Plt Count 229 235 (150-400) X10^3/uL Neut % (Auto) 80.9 H 72.5 (50-75) % Lymph % (Auto) 8.0 L 11.2 L (25-40) % Maverick % (Auto) 9.5 13.2 (3-14) % Eos % (Auto) 1.4 L 2.8 (2-4) % Baso % (Auto) 0.2 0.3 (0-2) % Neut # (Auto) 7200 H 5700 (6851-7603) /uL Lymph # (Auto) 700 L 900 L (7480-4831) /uL Maverick # (Auto) 800 1000 H (0-900) /uL Eos # (Auto) 100 200 (0-450) /uL Baso # (Auto) 0 0 (0-100) /uL Sodium 126 L 133 L (137-145) mmol/L Potassium 4.0 4.0 (3.4-5.1) mmol/L Chloride 93 L 102 (98-107) mmol/L Carbon Dioxide 25 23 (22-32) mmol/L BUN 25 H 16 (9-20) mg/dL Creatinine 1.39 H 0.75 (0.66-1.25) mg/dL Estimated GFR 55 L > 60 (>60) mL/min BUN/Creatinine Ratio 18.0 21.3 (6-22) Glucose 251 H 135 H D (80-110) mg/dL Calcium 8.9 8.7 (8.4-10.2) mg/dL Total Bilirubin 0.6 (0.2-1.3) mg/dL AST 23 (17-59) IU/L ALT 18 (<50) IU/L Alkaline Phosphatase 56 (38-126) U/L Total Protein 6.7 (6.3-8.2) g/dL Albumin 3.6 (3.5-5.0) g/dL Globulin 3.1 (1.7-4.1) g/dL Albumin/Globulin Ratio 1.2 (1.0-2.8) Lipase 108 D (23-300) U/L Urine Color Yellow Urine Appearance Clear Urine pH 5.0 (4.5-8.0) Ur Specific [place] 1.010 (1.000-1.035) Urine Protein Negative (Negative) Urine Glucose (UA) 3+ H (Negative) g/dL Urine Ketones Negative (NEGATIVE) Urine Occult Blood Negative (Negative) Urine Nitrate Negative (Negative) Urine Bilirubin Negative (NEGATIVE) Urine Urobilinogen 0.2 (0.2) E.U./dL Ur Leukocyte Esterase Negative (NEGATIVE) Urine RBC None seen (0-5/HPF) Urine WBC None seen (0-5/HPF) Ur Squamous Epith Cells None seen (0-5/HPF) Urine Bacteria None seen (None) Ur Culture Indicated? Cult not indicated Imaging Data CT scan - abdomen/pelvis: Radiologist's Impression: PROCEDURE: CT ABDOMEN PELVIS W CON INDICATIONS: LLQ pain TECHNIQUE: After the administration of oral and IV contrast, axial sections were acquired from the lung bases to the pubic symphysis. Coronal and sagittal reformats were performed. For radiation dose reduction, the following was used: automated exposure control, adjustment of mA and/or kV according to patient size. COMPARISON: None. FINDINGS: Image quality: Excellent. Lung bases: Unremarkable. Heart: No significant findings. ABDOMEN: Liver: Hepatic steatosis Gallbladder: No radiopaque gallstones or wall thickening. Biliary ducts: No biliary dilation. Pancreas: No ductal dilation. Spleen: Size is within normal limits. Adrenal Glands: No adrenal nodules. Kidneys and Ureters: Obstructing 5 mm stone (five hundred twenty-eight Hounsfield unit) in the proximal left ureter, resulting in severe hydronephrosis and significant fat stranding within the left pararenal space. Stomach and Bowel: Normal colonic caliber, without significant wall thickening. Colonic diverticulosis without evidence of diverticulitis. Peritoneum: No abnormal intraperitoneal fluid. No free air. Ventral Wall: No hernia. Abdominal Nodes: No retroperitoneal or mesenteric adenopathy by size criteria. Vessels: Aorta and inferior vena cava are normal in size. PELVIS: Pelvic Organs: Unremarkable. Bladder: Unremarkable. Pelvic Nodes: No enlarged lymph nodes. Miscellaneous: No inguinal hernias are seen. Bones: No aggressive osseous abnormality. IMPRESSION: Obstructing 5 mm stone in the proximal right ureter, resulting in severe hydronephrosis and significant fat stranding within the left pararenal space. CT KUB: Radiologist's Impression: PROCEDURE: CT KIDNEY URETER BLADDER (KUB) INDICATIONS: flank pain, h/o 5mm obstructing stone TECHNIQUE: Axial sections were acquired from the lung bases to the pubic symphysis. Coronal and sagittal reformats were performed. For radiation dose reduction, the following was used: automated exposure control, adjustment of mA and/or kV according to patient size. COMPARISON: [facility], CT, CT ABDOMEN PELVIS W CON, 09/01/2023, 12:03. FINDINGS: Image quality: Diagnostic. Lower Chest: Small left pleural effusion with atelectasis of the left lung base, which is new when compared to the prior CT. URINARY: Right Kidney: No stones or hydronephrosis. Right Ureter: No hydroureter. Left Kidney: Severe left hydronephrosis with increased perinephric fat stranding. Left Ureter: 5 mm calculus is again seen in unchanged position within the proximal left ureter with severe left hydronephrosis. Bladder: Normal wall thickness. No stones. ABDOMEN: Liver: No contour-deforming solid mass. Gallbladder: No radiopaque gallstones or wall thickening. Gallbladder is contracted. Biliary ducts: No biliary dilation. Pancreas: No ductal dilation. Spleen: Size is within normal limits. Adrenal Glands: No adrenal nodules. Stomach and Bowel: Normal colonic caliber, without significant wall thickening. Peritoneum: No abnormal intraperitoneal fluid. No free air. Ventral Wall: No hernia. Abdominal Nodes: No enlarged retroperitoneal or mesenteric lymph nodes. Vessels: Aorta and inferior vena cava are normal in size. PELVIS: Pelvic Organs: Unremarkable. Pelvic Nodes: Unremarkable. Miscellaneous: No inguinal hernias are seen. Bones: Unremarkable. IMPRESSION: 1. Left proximal ureteral 5 mm calculus is seen in unchanged position when compared to the CT from 09/01/2023. There is severe left hydronephrosis and worsening left perinephric fat stranding. 2. New small left pleural effusion. MDM Narrative Medical decision making narrative: The initial CT scan included in this note is for reference purposes. It was performed 4 days ago when he was here in the ER. Today, repeat CT scan shows that the 5 mm stone has not changed location. There is severe hydro to his left kidney and perinephric stranding. This is worsening from the CT scan from 4 days ago. He also has a bump in his creatinine. His GFR is just slightly lower. No fevers. No vomiting. His urinalysis does not show any signs of an infection. It actually has no blood as well. He does not have leukocytosis. He did have a leukocytosis here a couple days ago. He does have a left shift but it is improving from a couple days ago. He is tolerating oral intake. I discussed the case with on-call Urology of the [facility] who stated that based on his creatinine, lack of leukocytosis, lack of fever, lack of infection and ability to tolerate oral intake that there was no indication for an emergent stenting however she did acknowledge that his symptoms do seem to be worsening and because of the worsening hydro and that the stone has not moved he most likely is going to need some sort of urgent intervention. The [facility] has no bed availability. [facility]. The plan will be is to keep the patient in the emergency department overnight. Gentle hydration. Continue to watch labs and vital signs and plan for transfer when bed is available. <Lonnie Gudino MD - Last Filed: 09/06/23 08:02> Lab Data Labs: Lab Results 09/05/23 09/05/23 09/06/23 Range/Units 16:49 18:10 11:55 WBC 8.8 7.8 (4.5-11.0) X10^3/uL RBC 4.33 L 4.33 L (4.5-5.9) X10^6/uL Hgb 13.3 L 13.2 L (13.5-17.5) g/dL Hct 38.2 L 38.9 L (41-53) % MCV 88.2 89.9 (80-100) fL MCH 30.6 30.6 (26-34) PG MCHC 34.7 34.0 (30-36) % RDW 15.2 H 15.3 H (11.6-14.8) % Plt Count 229 235 (150-400) X10^3/uL Neut % (Auto) 80.9 H 72.5 (50-75) % Lymph % (Auto) 8.0 L 11.2 L (25-40) % Maverick % (Auto) 9.5 13.2 (3-14) % Eos % (Auto) 1.4 L 2.8 (2-4) % Baso % (Auto) 0.2 0.3 (0-2) % Neut # (Auto) 7200 H 5700 (1788-7713) /uL Lymph # (Auto) 700 L 900 L (6546-1557) /uL Maverick # (Auto) 800 1000 H (0-900) /uL Eos # (Auto) 100 200 (0-450) /uL Baso # (Auto) 0 0 (0-100) /uL Sodium 126 L 133 L (137-145) mmol/L Potassium 4.0 4.0 (3.4-5.1) mmol/L Chloride 93 L 102 (98-107) mmol/L Carbon Dioxide 25 23 (22-32) mmol/L BUN 25 H 16 (9-20) mg/dL Creatinine 1.39 H 0.75 (0.66-1.25) mg/dL Estimated GFR 55 L > 60 (>60) mL/min BUN/Creatinine Ratio 18.0 21.3 (6-22) Glucose 251 H 135 H D (80-110) mg/dL Calcium 8.9 8.7 (8.4-10.2) mg/dL Total Bilirubin 0.6 (0.2-1.3) mg/dL AST 23 (17-59) IU/L ALT 18 (<50) IU/L Alkaline Phosphatase 56 (38-126) U/L Total Protein 6.7 (6.3-8.2) g/dL Albumin 3.6 (3.5-5.0) g/dL Globulin 3.1 (1.7-4.1) g/dL Albumin/Globulin Ratio 1.2 (1.0-2.8) Lipase 108 D (23-300) U/L Urine Color Yellow Urine Appearance Clear Urine pH 5.0 (4.5-8.0) Ur Specific [place] 1.010 (1.000-1.035) Urine Protein Negative (Negative) Urine Glucose (UA) 3+ H (Negative) g/dL Urine Ketones Negative (NEGATIVE) Urine Occult Blood Negative (Negative) Urine Nitrate Negative (Negative) Urine Bilirubin Negative (NEGATIVE) Urine Urobilinogen 0.2 (0.2) E.U./dL Ur Leukocyte Esterase Negative (NEGATIVE) Urine RBC None seen (0-5/HPF) Urine WBC None seen (0-5/HPF) Ur Squamous Epith Cells None seen (0-5/HPF) Urine Bacteria None seen (None) Ur Culture Indicated? Cult not indicated MDM Narrative Medical decision making narrative: The initial CT scan included in this note is for reference purposes. It was performed 4 days ago when he was here in the ER. Today, repeat CT scan shows that the 5 mm stone has not changed location. There is severe hydro to his left kidney and perinephric stranding. This is worsening from the CT scan from 4 days ago. He also has a bump in his creatinine. His GFR is just slightly lower. No fevers. No vomiting. His urinalysis does not show any signs of an infection. It actually has no blood as well. He does not have leukocytosis. He did have a leukocytosis here a couple days ago. He does have a left shift but it is improving from a couple days ago. He is tolerating oral intake. I discussed the case with on-call Urology of the [facility] who stated that based on his creatinine, lack of leukocytosis, lack of fever, lack of infection and ability to tolerate oral intake that there was no indication for an emergent stenting however she did acknowledge that his symptoms do seem to be worsening and because of the worsening hydro and that the stone has not moved he most likely is going to need some sort of urgent intervention. The [facility] has no bed availability. [facility], [facility] have no bed availability either. The plan will be is to keep the patient in the emergency department overnight. Gentle hydration. Continue to watch labs and vital signs and plan for transfer when bed is available. 730a Transfer of care note, Dr. Gudino dictation, I have reviewed patient's chart, reviewed vitals, reassessed the patient posteriorly, patient's is at bedside at this time, as I enter the room 745, patient is eating breakfast with her life. He describes pain to be filed a time and declined to have pain medication administration at this time, I have disclosed to him the CT evidence of hydronephrosis and 5 mm ureteral calculi, there is worsening renal function since his last visit, the prior ED physician Dr. Vazquez was able to consult [facility] urology, there is no immediately to be transfer for procedure however patient does have some urgency as there is renal function declined, unfortunately there is no bed availability at a nearby facility, we will continue to search of bed mumbling him down to [place] with the patient, all questions addressed at this time, we will give him an update when there is a bed assignment. Discharge Plan Departure Patient Disposition: Home Clinical Impression: Kidney stone on left side, Acute kidney injury Instructions: DI for Kidney Stones Activity Restrictions/Additional Instructions: Please take pain medication, Flomax, Zofran as needed. If there is severe pain, follow-up with a local hospital where they may be have urology for rapid consultation and management. Prescriptions: New oxycodone-acetaminophen [Percocet] 5-325 mg tablet 1 tab PO Q6H PRN (Reason: pain) Qty: 10 0RF tamsulosin [Flomax] 0.4 mg capsule 0.4 mg PO DAILY Qty: 7 0RF No Action PreserVision AREDS 1 EACH capsule 1 sgl PO BID Qty: 0 atorvastatin 10 mg Tablet 10 mg PO BEDTIME tamsulosin 0.4 mg Capsule 0.4 mg PO BID Patient Comments: Initially ordered as daily, [facility] changed to BID for 5x days started 09/03 per patient. metformin 1,000 mg Tablet 1,000 mg PO BID metoprolol tartrate 50 mg Tablet 50 mg PO BID empagliflozin 25 mg Tablet 25 mg PO QAM Ozempic 1 mg/dose (2 mg/1.5 mL) Pen Injector 1 mg SUBCUT QWEEK losartan [Cozaar] 25 mg tablet 50 mg PO QAM timolol maleate 0.5 % drops 1 drp EYE-BOTH DAILY Patient Comments: [NO ORIGINAL SIG] dorzolamide 2 % drops 1 drp EYE-BOTH QAM Patient Comments: [NO ORIGINAL SIG] (DME) lancing device [Auto-Lancets] Misc MISCELLANEOUS Referrals: Miscellaneous,Doctor, MD [Primary Care Provider] - Stand Alone Forms: Patient Portal/API
[2023-09-05] MEDS: HYDROMORPHONE 0.5 MG INJ IV (20:44)
--- NOTE | 2023-09-05 21:30 | PC.NURSE ---
Addendum entered by Yaneyl Jeronimo CNA 09/06/23 06:16: LOGISTICS OPERATIONS DIRECTOR note: Spoke to Oly at [facility] again. Patient is currently waitlisted at [facility]. She's hoping she can find placement today. Addendum entered by Yanely Jeronimo CNA 09/06/23 05:08: CHARLENE note: Following up with trying to find patient a bed. Called [facility] and spoke to Kingsley. He said they have even less beds than earlier. They had zero beds and 9 boarding in their emergency room. Called [facility] spoke to Oly. She said she would call me back Original Note: CHARLENE note: Spoke to the following places w/ the following responses to asking for a bed to transfer to: : doesn't have beds. [facility]: Kingsley 2101 No beds but a crash bed. [facility]: 2109 left a message [place]: 2114 D[place]ry. No beds. Currently boarding 48 [facility]: [facility] 2116 patient on their waiting list [facility]: 2119 have 30 people on their waiting list. Doctor and shank maker aware.
[2023-09-05] MEDS: SODIUM CHLORIDE 0.9% 1,000 ML 125 ML IV (21:33)
[2023-09-06] VITALS (34 sets, daily range): BP systolic 116–145; BP diastolic 61–82; PULSE 70–86; RESP 16–18; TEMP 36.2; O2SAT 84–99
[2023-09-06] MEDS: SODIUM CHLORIDE 0.9% 1,000 ML 125 ML IV ×2 (02:51→10:59)
[2023-09-06 12:10] LABS: Add Manual Diff / Slide Review NO; Basophils Absolute Auto 0 /uL (0-100); Basophils Percent Auto 0.3 % (0-2); Eosinophils Absolute Auto 200 /uL (0-450); Eosinophils Percent Auto 2.8 % (2-4); Hematocrit 38.9 % (41-53); Hemoglobin 13.2 g/dL (13.5-17.5); Lymphocytes Absolute Auto 900 /uL (1100-4500); Lymphocytes Percent Auto 11.2 % (25-40); Mean Corpuscular Hemoglobin 30.6 PG (26-34); Mean Corpuscular Volume 89.9 fL (80-100); Monocytes Absolute Auto 1000 /uL (0-900); Monocytes Percent Auto 13.2 % (3-14); Neutrophils Absolute Auto 5700 /uL (1500-7000); Neutrophils Percent Auto 72.5 % (50-75); Platelet Count 235 X10^3/uL (150-400); Red Blood Cell Count 4.33 X10^6/uL (4.5-5.9); Red Cell Distribution Width 15.3 % (11.6-14.8); White Blood Cell Count 7.8 X10^3/uL (4.5-11.0)
[2023-09-06 12:17] LABS: BUN Creatinine Ratio 21.3 (6-22); Blood Urea Nitrogen 16 mg/dL (9-20); Calcium 8.7 mg/dL (8.4-10.2); Carbon Dioxide 23 mmol/L (22-32); Chloride 102 mmol/L (98-107); Estimated Glomerular Filt Rate > 60 mL/min (>60); Glucose 135 mg/dL (80-110); HEMOLYSIS 22 (0-50); Sodium 133 mmol/L (137-145)
[2023-09-06] MEDS: ENOXAPARIN 40 MG/0.4 ML SYRINGE SUBCUT (13:39)
--- NOTE | 2023-09-06 14:14 | ED.MALEGU ---
HPI - Male Genitourinary General Chief complaint: Urogenital-Male Stated complaint: Hx kidney stone T-4/worsening Time Seen by Provider: 09/05/23 17:55 Source: patient Mode of arrival: Family Vehicle History of Present Illness HPI Narrative: Care is transferred to ok at 7:00 a.m. in the morning pending potential transfer for definitive urological management for 5 mm renal calculi there has not move over last 5 days. I received the patient I reviewed the chart, reassess the patient, my finding is consistent, Related Data Home Medications Medication Instructions Recorded Confirmed vitamins A,C,J-npwg-bkhhay 4,296 1 sgl PO BID ##0 05/15/16 09/06/23 mcg-226 mg-90 mg capsule (PreserVision AREDS) atorvastatin 10 mg tablet 10 mg PO BEDTIME 02/27/23 09/06/23 empagliflozin 25 mg tablet 25 mg PO QAM 02/27/23 09/06/23 losartan 25 mg tablet (Cozaar) 50 mg PO QAM 02/27/23 09/06/23 metformin 1,000 mg tablet 1,000 mg PO BID 02/27/23 09/06/23 metoprolol tartrate 50 mg tablet 50 mg PO BID 02/27/23 09/06/23 semaglutide 1 mg/dose (2 mg/1.5 1 mg SUBCUT QWEEK 02/27/23 09/06/23 mL) subcutaneous pen injector (Ozempic) tamsulosin 0.4 mg capsule 0.4 mg PO BID 02/27/23 09/06/23 dorzolamide 2 % eye drops 1 drp EYE-BOTH QAM 09/06/23 09/06/23 lancing device 09/06/23 09/06/23 timolol maleate 0.5 % eye drops 1 drp EYE-BOTH DAILY 09/06/23 09/06/23 Previous Rx's Medication Instructions Recorded oxycodone-acetaminophen 5 mg-325 1 tab PO Q6H PRN pain #10 tabs 09/06/23 mg tablet (Percocet) tamsulosin 0.4 mg capsule (Flomax) 0.4 mg PO DAILY #7 caps 09/06/23 Allergies Allergy/AdvReac Type Severity Reaction Status Date / Time No Known Drug Allergies Allergy Verified 09/01/23 11:10 Review of Systems Review of Systems Narrative: All system negative except what is dictated in HPI ROS Unobtainable: All systems reviewed & are unremarkable except as noted in HPI and below Constitutional Constitutional: Reports as per HPI Eyes Eyes: Reports as per HPI ENT Ears, Nose, Mouth, and Throat: Reports system reviewed and no additional complaints, except as documented Patient History Medical History HLD (hyperlipidemia) Intractable hiccups Acid reflux (08/26/22) Erectile dysfunction (Unknown) Hypertension (Unknown) Asthma (Unknown) Diabetes (Unknown) Surgical History Hx of eye surgery History of colonoscopy Status post knee surgery Family History Father Hypertension Grandfather Hypertension Social History household members: spouse Smoking Status: Former smoker alcohol intake: current Smoking Status: Former smoker alcohol intake frequency: 0-2 drinks per day Substance Use Type: does not use Exam Narrative Exam Narrative: At the time of this assessment, patient's pain is 4/10, well-controlled, he does not want to have any medicine for pain at this time Initial Vital Signs Initial Vital Signs: Vital Signs Temperature 97.1 F L 09/05/23 16:33 Pulse Rate 94 H 09/05/23 16:33 Respiratory Rate 17 09/05/23 16:33 Blood Pressure 136/67 09/05/23 16:33 Pulse Oximetry 99 09/05/23 16:33 Oxygen Delivery Method Room Air 09/05/23 16:33 Const General: cooperative, healthy appearing and comfortable [facility] Head: normal to inspection and normocephalic Ears: hearing grossly normal bilaterally Eyes General: Yes appearance normal, both eyes and all related structures Neck Neck: normal visual inspection and full ROM Chest Chest: normal inspection of the chest and normal palpation of entire chest wall Resp Effort & Inspection: normal respiratory effort and able to speak in complete sentences Cardio Palpation: normal PMI, abnormal PMI and heave Rate: regular rate GI Inspection: normal to inspection and abdominal wall ecchymosis Palpation: soft Percussion: normal to percussion General: CVA tenderness External: normal external exam Back/Spine/Pelvis Back: CVA tenderness Course Orders Ordered: ED Orders 09/06/23 11:55 Basic Metabolic Panel Stat Complete Blood Count AUTO DIFF Stat Enoxaparin Sodium (Enoxaparin 40 Mg/0.4 Ml Syringe) 40 mg SUBCUT DAILY [facility] Last Admin: 09/06/23 13:39 Dose: 40 mg Documented By: VANESSA Sodium Chloride (Normal Saline 0.9%) 1,000 mls @ 125 mls/hr IV CONT [facility] Last Infusion: 09/06/23 10:53 Dose: Infused Documented By: Infusion: 09/06/23 08:45 Dose: 125 mls/hr Documented By: Infusion: 09/06/23 08:36 Dose: 0 mls/hr Documented By: Admin: 09/06/23 02:51 Dose: 125 mls/hr Documented By: Infusion: 09/06/23 02:51 Dose: Infused Documented By: Admin: 09/05/23 21:33 Dose: 125 mls/hr Documented By: ORA Sodium Chloride (Normal Saline 0.9%) 1,000 mls @ 125 mls/hr IV CONT [facility] Last Admin: 09/06/23 10:59 Dose: 125 mls/hr Documented By: VANESSA Naloxone HCl (Naloxone 0.4 Mg/Ml Vial) 0.2 mg IV Q2MIN PRN PRN Reason: Opiate Reversal Ondansetron HCl (Ondansetron 4 Mg Odt) 4 mg SL NOW PRN PRN Reason: Nausea And Vomiting Ondansetron HCl (Ondansetron 4 Mg/2 Ml Inj) 4 mg IV NOW PRN PRN Reason: Nausea And Vomiting Last Admin: 09/05/23 18:04 Dose: 4 mg Documented By: VANESSA Discontinued Medications Hydromorphone HCl (Hydromorphone 0.5 Mg Inj) 0.5 mg IV NOW ONE Stop: 09/05/23 20:42 Last Admin: 09/05/23 20:44 Dose: 0.5 mg Documented By: ORA Ketorolac Tromethamine (Ketorolac 30 Mg/Ml Vial) 30 mg IV NOW ONE Stop: 09/05/23 17:57 Last Admin: 09/05/23 18:04 Dose: 30 mg Documented By: VANESSA Vital Signs Vital signs: Vital Signs - 8 hr 09/06/23 06:30 09/06/23 06:30 09/06/23 07:00 Pulse Rate 70 Respiratory Rate Blood Pressure 122/72 139/78 Pulse Oximetry 97 Oxygen Delivery Method 09/06/23 07:00 09/06/23 07:30 09/06/23 07:30 Pulse Rate 75 74 Respiratory Rate Blood Pressure 133/72 Pulse Oximetry 99 97 Oxygen Delivery Method 09/06/23 08:00 09/06/23 08:00 09/06/23 08:30 Pulse Rate 83 83 Respiratory Rate Blood Pressure 128/76 Pulse Oximetry 98 98 Oxygen Delivery Method Room Air 09/06/23 08:30 09/06/23 09:00 09/06/23 09:00 Pulse Rate 82 Respiratory Rate Blood Pressure 133/72 127/66 Pulse Oximetry 98 Oxygen Delivery Method 09/06/23 09:30 09/06/23 09:30 09/06/23 10:00 Pulse Rate 82 Respiratory Rate Blood Pressure 129/64 125/71 Pulse Oximetry 97 Oxygen Delivery Method 09/06/23 10:00 09/06/23 10:17 09/06/23 10:30 Pulse Rate 82 80 Respiratory Rate Blood Pressure 123/78 Pulse Oximetry 99 99 Oxygen Delivery Method Room Air 09/06/23 10:59 09/06/23 11:00 09/06/23 11:00 Pulse Rate 76 78 Respiratory Rate Blood Pressure 137/82 Pulse Oximetry 99 98 Oxygen Delivery Method 09/06/23 11:30 09/06/23 11:30 09/06/23 12:44 Pulse Rate 76 Respiratory Rate Blood Pressure 116/78 127/61 Pulse Oximetry 99 Oxygen Delivery Method Room Air 09/06/23 12:44 09/06/23 13:00 09/06/23 13:30 Pulse Rate 82 80 81 Respiratory Rate Blood Pressure Pulse Oximetry 96 98 98 Oxygen Delivery Method Room Air Room Air 09/06/23 13:35 Pulse Rate Respiratory Rate 16 Blood Pressure Pulse Oximetry Oxygen Delivery Method MDM - Male Genitourinary Differential Diagnosis Differential diagnosis: Likely other (ureteral calculus) Medical Records Attestation: I reviewed the patient's medical records. Medical records narrative: , Lab Data Attestation: I reviewed the patient's lab results. 09/06/23 11:55 09/06/23 11:55 Labs: Lab Results 12/29/23 12/29/23 12/30/23 Range/Units 16:49 18:10 11:55 WBC 8.8 7.8 (4.5-11.0) X10^3/uL RBC 4.33 L 4.33 L (4.5-5.9) X10^6/uL Hgb 13.3 L 13.2 L (13.5-17.5) g/dL Hct 38.2 L 38.9 L (41-53) % MCV 88.2 89.9 (80-100) fL MCH 30.6 30.6 (26-34) PG MCHC 34.7 34.0 (30-36) % RDW 15.2 H 15.3 H (11.6-14.8) % Plt Count 229 235 (150-400) X10^3/uL Neut % (Auto) 80.9 H 72.5 (50-75) % Lymph % (Auto) 8.0 L 11.2 L (25-40) % [place]idan % (Auto) 9.5 13.2 (3-14) % Eos % (Auto) 1.4 L 2.8 (2-4) % Baso % (Auto) 0.2 0.3 (0-2) % Neut # (Auto) 7200 H 5700 (4631-5805) /uL Lymph # (Auto) 700 L 900 L (5289-2524) /uL Sheridan # (Auto) 800 1000 H (0-900) /uL Eos # (Auto) 100 200 (0-450) /uL Baso # (Auto) 0 0 (0-100) /uL Sodium 126 L 133 L (137-145) mmol/L Potassium 4.0 4.0 (3.4-5.1) mmol/L Chloride 93 L 102 (98-107) mmol/L Carbon Dioxide 25 23 (22-32) mmol/L BUN 25 H 16 (9-20) mg/dL Creatinine 1.39 H 0.75 (0.66-1.25) mg/dL Estimated GFR 55 L > 60 (>60) mL/min BUN/Creatinine Ratio 18.0 21.3 (6-22) Glucose 251 H 135 H D (80-110) mg/dL Calcium 8.9 8.7 (8.4-10.2) mg/dL Total Bilirubin 0.6 (0.2-1.3) mg/dL AST 23 (17-59) IU/L ALT 18 (<50) IU/L Alkaline Phosphatase 56 (38-126) U/L Total Protein 6.7 (6.3-8.2) g/dL Albumin 3.6 (3.5-5.0) g/dL Globulin 3.1 (1.7-4.1) g/dL Albumin/Globulin Ratio 1.2 (1.0-2.8) Lipase 108 D (23-300) U/L Urine Color Yellow Urine Appearance Clear Urine pH 5.0 (4.5-8.0) Ur Specific [place] 1.010 (1.000-1.035) Urine Protein Negative (Negative) Urine Glucose (UA) 3+ H (Negative) g/dL Urine Ketones Negative (NEGATIVE) Urine Occult Blood Negative (Negative) Urine Nitrate Negative (Negative) Urine Bilirubin Negative (NEGATIVE) Urine Urobilinogen 0.2 (0.2) E.U./dL Ur Leukocyte Esterase Negative (NEGATIVE) Urine RBC None seen (0-5/HPF) Urine WBC None seen (0-5/HPF) Ur Squamous Epith Cells None seen (0-5/HPF) Urine Bacteria None seen (None) Ur Culture Indicated? Cult not indicated MDM Narrative Medical decision making narrative: Care is transferred to [facility] at 7:00 a.m. in the morning pending potential transfer for definitive urological management for 5 mm renal calculi there has not move over last 5 days. I received the patient I reviewed the chart, reassess the patient, my finding is consistent, I have reviewed the chart and repeat the lab result, acute renal injury has improved and resolved, CT scan demonstrated a 5 mm obstructive stone that has not moved since September 01. At 2:00 a.m., I have spoken to Urology at [facility], I have outlined to Dr. Joseph patient's clinical presentation lab results CT scan that demonstrated no movement of this 5 mm renal calculi, his recommendation is patient can be discharged home with pain management Flomax since pain is reasonably controlled, there is no evidence of acute pyelonephritis, no definitive care is needed urgently at this time. He indicated the patient can follow up with the Urology locally if he has passed the stone in about 1-2 months' time clearly if there is severe pain, patient can go to a local other facility where there is urologist. At 2:15 p.m., I have discussed with the patient and his at bedside, there were discussed of palpations study and consultation with Urology at [facility], recommendation is pain management Flomax and trying to catch the stone, local urology consultation, if there is further pain patient can go to a facility where they can have a urology rapidly They agree with this arrangement, A prescription of Percocet Zofran and Flomax will be given. Stable at time of discharge all questions addressed Discharge Plan Departure Patient Disposition: Home Clinical Impression: Kidney stone on left side, Acute kidney injury Instructions: DI for Kidney Stones Activity Restrictions/Additional Instructions: Please take pain medication, Flomax, Zofran as needed. If there is severe pain, follow-up with a local hospital where they may be have urology for rapid consultation and management. Prescriptions: New oxycodone-acetaminophen [Percocet] 5-325 mg tablet 1 tab PO Q6H PRN (Reason: pain) Qty: 10 0RF tamsulosin [Flomax] 0.4 mg capsule 0.4 mg PO DAILY Qty: 7 0RF No Action PreserVision AREDS 1 EACH capsule 1 sgl PO BID Qty: 0 atorvastatin 10 mg Tablet 10 mg PO BEDTIME tamsulosin 0.4 mg Capsule 0.4 mg PO BID Patient Comments: Initially ordered as daily, [facility] changed to BID for 5x days started 09/03 per patient. metformin 1,000 mg Tablet 1,000 mg PO BID metoprolol tartrate 50 mg Tablet 50 mg PO BID empagliflozin 25 mg Tablet 25 mg PO QAM Ozempic 1 mg/dose (2 mg/1.5 mL) Pen Injector 1 mg SUBCUT QWEEK losartan [Cozaar] 25 mg tablet 50 mg PO QAM timolol maleate 0.5 % drops 1 drp EYE-BOTH DAILY Patient Comments: [NO ORIGINAL SIG] dorzolamide 2 % drops 1 drp EYE-BOTH QAM Patient Comments: [NO ORIGINAL SIG] (DME) lancing device [Auto-Lancets] Misc MISCELLANEOUS Referrals: Miscellaneous,Doctor, MD [Primary Care Provider] - Stand Alone Forms: Patient Portal/API
[2023-09-06] MEDS: KETOROLAC 30 MG/ML VIAL 15 MG IV (15:04)
--- NOTE | 2023-09-06 15:38 | PC.NURSE ---
RX transmission shows failed. I called [facility] pharmacist and called in prescription for Ondansetron 4mg Q6H PRN 20tab and Tamsulosin 0.4mg PO daily with 7 tab dispense, per Dr. Gudino Verbal order read-back.
== END 2023-09-06 15:30 | disposition home or self-care (01) ==
PROVIDERS: Emergency Medicine; Emergency Provider Emergency Medicine Emergency Medical Services
DX: N20.0 Calculus of kidney (principal); N17.9 Acute kidney failure, unspecified; Z87.442 Personal history of urinary calculi; Z79.899 Other long term (current) drug therapy
CPT/HCPCS: 36415; 74176; 80048; 80053; 81001; 83690; 85025; 96361; 96372; 96374; 96375; 96376; 99284; J1170; J1650; J1885; J2405

== ENCOUNTER 2024-01-07 09:53 | Day surgery (SDC) | payer MEDICARE, OTHER, SELFPAY ==
[2024-01-01 08:26] VITALS: BMI 24.0
[2024-01-07] VITALS (11 sets, daily range): BP systolic 106–144; BP diastolic 75–88; PULSE 72–99; RESP 14–18; TEMP 36.1–37.2; O2SAT 93–100; BMI 24.0
--- NOTE | 2024-01-07 | DI.RAD.S_ITS ---
PROCEDURE: XR KNEE RT 1TO2V INDICATIONS: POST OP KNEE TECHNIQUE: 2 view(s) of the knee acquired. COMPARISON: [facility], CR, XR KNEE LT 1TO2V, 03/07/2023, 10:37. [facility] [place], CR, XR KNEE 4+ VIEWS BILATERAL, 12/23/2023, 10:36. FINDINGS: Bones: Patient is status post knee joint arthroplasty. Hardware components are in expected positions. Visualized bony structures are intact. Soft tissues: Overlying postoperative changes are noted. IMPRESSION: Expected post-operative appearance of a knee arthroplasty. Dictated by: Salvador Monzon M.D. on 01/07/2024 at 16:29 Approved by: Salvador Monzon M.D. on 01/07/2024 at 16:29
[2024-01-07] MEDS: LACTATED RINGERS 1,000 ML 42 ML IV ×2 (10:54→13:59)
[2024-01-07] MEDS: ACETAMINOPHEN 325 MG TABLET 975 MG PO (11:17)
--- NOTE | 2024-01-07 11:52 | PM.PREOP ---
Pre-operative Note Interval Note History & Physical reviewed/Exam performed by Physician: Yes Changes to H&P: No
--- NOTE | 2024-01-07 12:22 | SUR.OPER ---
Supine on padded OR bed. Pillow under head, arms secured on padded armboards <90 degree abduction. Safety belt across torso. Non-operative leg secured with tape over blanket over lower leg. Operative leg secured in knee/foam ladder positioner. Foam padded brace at thigh of operative leg. CONFIRMED BY DR. DELGADO.
--- NOTE | 2024-01-07 12:27 | SUR.PREOP ---
Time out 1215. Block start time [1215] . Monitoring initiated and maintained throughout procedure. Oxygen and medications given per anesthesiologist instructions. Patient remained stable throughout procedure, no adverse reactions noted. Block end time [1224].
--- NOTE | 2024-01-07 12:38 | P.OP_ITS ---
Operative Date/Time/Diagnoses Date of procedure: 01/07/24 Time of procedure: 12:45 Pre-op diagnosis: Right knee arthritis Post-op diagnosis: same Procedure & Clinicians Procedure: Right total knee arthroplasty, robotic assisted CPT code 42248 Same procedure as scheduled: Yes Indications: The patient has significant pain associated with osteoarthritis of the right knee. It is associated with morning stiffness. Pain interferes with daily normal function including ambulation standing and any activities that are weight-bearing. It interferes with sleep. There is crepitation with range of motion. There is marked joint line tenderness. X-rays show significant levels of osteoarthritis. Double attempted previous conservative treatment has been rendered. The patient has failed exercise program, medications and previous injections. Patient is indicated for total knee arthroplasty. The risks and benefits of the procedure have been discussed with the patient and given the opportunity to ask questions. The risks of surgery include but are not limited to infection, malunion, nonunion, persistence of pain, damage to nerves and blood vessels, posttraumatic arthritis, DVT, PE, cardiopulmonary complications and . The patient expressed a thorough understanding of the risks and benefits of surgery and has elected to proceed. Consent was signed. During the operation, the services of a physician operating room surgical technician were medically indicated and necessary to provide the exposure of the operative site for the surgical procedure and to maintain the limb in a proper position to carry out the operation safely and efficiently. Without a qualified administrative assistant receptionist being present this would extended the operative procedure and made the procedure technically more difficult to perform. Surgeon: Karla Chandra Stitcher Set Up Operator Automatic: Lang Burnett Anesthesia Type: General, Peripheral nerve block and Local Operative Notes Findings: Varus knee arthritis right knee, tricompartmental osteophytes. Full-thickness cartilage loss medial compartment large osteophytes medial and anterior compartments. Closure Type: primary Specimen(s): none sent Prosthetic devices, grafts, tissues, transplants, or devices: Holcomb and Nephew journey bi CS II Femur Oxinium 6 Tibia 6 Poly 9 mm Patella 35 x 9 Estimated Blood Loss (mL): 100 Blood products transfused: none Tourniquet time (min): 101 Procedure in detail: Patient was seen in the preoperative area where the patient and site of surgery were identified in the operative knee was marked informed consent confirmed. This was the right knee. Patient received the appropriate preoperative antibiotics this was 2 g of Ancef. And other preoperative medications and was taken to the operating room placed on operating table in the supine position. Spinal anesthetic were administered. The operative extremity was then prepped and draped in the standard sterile fashion with a nonsterile tourniquet high on the thigh. Patient was placed on the green foam bolsters. A lateral post was placed at the level of the proximal thigh /trochanter area as a lateral post. Formal time-out procedure was performed confirming the patient's side and site of surgery and administration of appropriate preoperative antibiotics and implants were in the room accounted for. All were in agreement. Patient received a preoperative dose of tranexamic acid and then a 2nd dose at tourniquet release Patient was prepped and draped in the standard sterile fashion and the foot was placed into the leg dolan. This was taken into high flexion and the incision was marked out over the anterior knee to the level of the medial tubercle tubercle. The Esmarch was then used for exsanguination and the tourniquet was inflated to 250 mmHg. Was made through the skin and subcutaneous tissue in high flexion this was then brought down into 30? of flexion for the medial parapatellar arthrotomy. A marker pen was used to david the arthrotomy site for later repair. Joint fluid was evacuated. The anterior osteophytes and soft tissues were removed. Routine medial release was initially made along the medial proximal tibia with Bovie. The patella was 1st cut using the saw sized and prepped and then subluxed throughout the case and protected. The leg was then taken into extension and the patella was everted and the patella was cut to accommodate the patellar button. This was sized to a 35 mm button for a 9 mm thickness to recreate the original dimensions of the patella. Poly was removed and the protector replaced and the patella was subluxed and the knee was taken back up into flexion and attention was returned to the femur. Then the rotational landmarks of [place] line and the trans epicondylar axis were marked on the femur with electrocautery. ACL and PCL were released. Then the Cori robotic pins were placed into the femur and tibia and the trackers were set up. Landmarks were established and the robotic planning was commenced. Plan was developed and improved and adjusted as necessary to create a balanced knee. Preoperative alignment was 3? of varus. achieved alignment 1-2 deg varus Planned external rotation femur 4?. Implants were planned for a 6 femur and tibia. And the knee was taken through range of motion and gap balancing commenced with 1-2 mm laxity. Once the plan was satisfactory, the bur was used to remove the distal femur . Then the bur holes for the tibia and tibial cut were made. The extension block was trialed. This was quite tight with the [address] But the 9 mm flexion block fit well so decision was made to take 1 more mm off the distal femur. This was programmed into the robotic assisted navigation then the bur was used to remove 1 more mm off the distal femur. The extension block block was trialed again and fit well. At this point the 5 in 1 cutting block was applied and we completed the femur cuts. The trials were placed. And the femoral notch was cut a standard fashion using Reamer then slap hammer. The knee was trialed and the checked. Knee was balanced in flexion extension. Range of motion 0-135 degrees was obtained. The rotation femoral trial was marked Bovie on the bone and checked with a long ambar. This lined up excellently with the tibial spine and 2nd toe. The tibia was then finished using the size 6 tray with a drill and flange cut and then The trial implants were removed. Then in extension the posterior capsule was injected with a mixture of 40 mL of 0.25% Marcaine and 20 mL of Exparel care to avoid excessive injection posterior laterally. The remainder of this was saved for the capsule and subcutaneous tissue and placed during cement curing. The wound and bone was irrigated with pulsatile lavage. This was then dried with a sponge. The components were verified and opened and the cement was mixed. Cement was applied to the components and then to the bone then the tibia was cemented in place 1st followed by the femur then the patella. Excess cement was removed. With care looking around the back of the knee. Remainder of the injection was injected around the capsule. trial poly was placed back in the leg was placed into extension for the patellar cementing. After this was cured approximately 15 minutes later and the dilute Betadine solution was placed for at least 3 minutes in the wound this was then irrigated out and the final poly was placed. This was a 9mm poly. The tourniquet was released hemostasis was achieved. Final 1g of tranexamic acid was given IV at the time of tourniquet release. The capsule was closed with 1. Ethibond suture. Followed by a running Quill stitch. Subcutaneous layer was closed with 3-0 Vicryl suture. Skin was closed with a running V lock suture Stratafix Monocryl type suture and Dermabond. An Aquacel dressing was placed . An Sam wrap was applied. Anesthetic was terminated the patient was woken from anesthesia and taken to recovery room in good condition. There no immediate complications from this procedure. The patient will be maintained on a standard total knee replacement protocol with weight-bearing as tolerated. Post-operative Condition: stable Disposition: PACU Plan for aftercare: Weightbear as tolerated immediate range of motion. Aspirin 81 mg b.i.d. x6 weeks postop for DVT prophylaxis. Commence physical therapy within 1 week. Follow up in Orthopedic Clinic in 2 weeks.
[2024-01-07] MEDS: CEFAZOLIN 2 GM/100 ML PREMIX 100 ML IV ×2 (12:42→21:08)
[2024-01-07] MEDS: TRANEXAMIC ACID 1,000 MG in SODIUM CHLORIDE 0.9% 100 ML 200 MG IV (12:48)
[2024-01-07] MEDS: BUPIVACAINE 0.25% (PF) 30 ML, EPINEPHrine 0.15 MG INJ (13:18)
[2024-01-07] MEDS: BUPIVACAINE LIPOSOME 266 MG/20 ML VIAL INJ (13:19)
[2024-01-07] MEDS: LACTATED RINGERS 1,000 ML 100 ML IV (18:35)
[2024-01-07] MEDS: KETOROLAC 30 MG/ML VIAL 15 MG IV (18:36)
[2024-01-07] MEDS: VIT C/E/ZN/COPPR/LUTEIN/ZEAXAN CAPSULE 1 CAP PO (21:08)
[2024-01-07] MEDS: ASPIRIN EC 81 MG TABLET PO (21:08)
[2024-01-07] MEDS: ATORVASTATIN 20 MG TABLET 10 MG PO (21:09)
[2024-01-07] MEDS: METFORMIN HCL 500 MG TABLET 1000 MG PO (21:09)
[2024-01-07] MEDS: DOCUSATE 100 MG CAPSULE PO (21:09)
[2024-01-07] MEDS: METOPROLOL IR 50 MG TABLET PO (21:09)
[2024-01-07] MEDS: TAMSULOSIN 0.4 MG CAPSULE PO (21:09)
[2024-01-07] MEDS: FINASTERIDE 5 MG TABLET PO (21:10)
[2024-01-07] MEDS: INSULIN LISPRO 100 UNIT/ML 3ML VIAL SUBCUT (21:22)
[2024-01-08] MEDS: KETOROLAC 30 MG/ML VIAL 15 MG IV (02:52)
[2024-01-08] MEDS: LACTATED RINGERS 1,000 ML 100 ML IV (04:48)
[2024-01-08] MEDS: CEFAZOLIN 2 GM/100 ML PREMIX 100 ML IV (04:51)
[2024-01-08 06:11] LABS: Hematocrit 37.4 % (41-53); Hemoglobin 12.8 g/dL (13.5-17.5)
--- NOTE | 2024-01-08 08:52 | PT.IIE ---
Current Diagnoses Unilateral primary osteoarthritis, right knee (01/07/24) Surgery Performed Operation Date: 01/07/24 11:45 Actual Procedures p RIGHT Total Knee Arthroplasty with Robot(Right) - Karla Chandra MD Surgical History (Last Updated 01/01/24 @ 08:30 by Jessica Fairbanks, RN) History of colonoscopy History of total left knee replacement (03/07/23) Hx of eye surgery Status post knee surgery Medical History (Last Updated 01/01/24 @ 09:22 by Jessica Fairbanks, RN) Acid reflux (08/26/22) Asthma (Unknown) Diabetes (Unknown) Erectile dysfunction (Unknown) History of COVID-19 (~2021) HLD (hyperlipidemia) Hypertension (Unknown) Intractable hiccups Physical Therapy Inpatient Evaluation/Re-Eval M1 PT/OT-IP Prior Functional Status Start: 01/08/24 08:33 Freq: NEEDED Status: Active Protocol: Document 01/08/24 08:35 MB (Rec: 01/08/24 08:52 MB [id number]) Medical Review Prior Functional Status Medical History Reviewed Yes Diet/Fluid Consistency Regular Communication WNLs Mobility and Gait I Activities of Daily Living and IADL's I Social History Household Members spouse Living Arrangements House Number of Floors (Floors) Two Floors Number of Stairs To Enter/Railing? 3 steps right rail enter and 2 sets of 6 steps with right rail to get to bed room Home Environment Standard Height Toilet,Walk in Shower,Tub/Shower Home Equipment Front Wheel Walker,Straight Cane,Shower Seat with Backrest ,Hand Held Shower Employment Status Retired M2 PT-IP Current Condition Start: 01/08/24 08:33 Freq: NEEDED Status: Active Protocol: Document 01/08/24 08:35 MB (Rec: 01/08/24 08:52 MB [id number]) Physical Therapy Current Condition Current Condition Evaluation Date 01/08/24 Treatment Diagnosis R TKA M3 PT-IP Subjective Start: 01/08/24 08:33 Freq: NEEDED Status: Active Protocol: Document 01/08/24 08:35 MB (Rec: 01/08/24 08:52 MB [id number]) Subjective Physical Therapy Visit Type Type Initial Evaluation Visit Start Time 08:35 Visit Stop Time 08:47 Number of AGRICULTURAL PRODUCE WASHER Visits 0 Physical Therapy Visit Comments Patient Comments Pt states that he is doing well. Therapy Pain Assessment Pain When Pain Assessed At Rest Pain Present Pain Present Pain Reported Location right knee Intensity 1 Scale Used Numeric (0 - 10) M4 PT-IP Mobility and Gait Start: 01/08/24 08:33 Freq: NEEDED Status: Active Protocol: Document 01/08/24 08:35 MB (Rec: 01/08/24 08:52 MB [id number]) PT-Bed Mobility Assessment Supine to Sit Supine to Sit Independent Scooting Scooting to Edge of Bed Independent Scooting Up and Down in Bed Standby Assistance PT-Transfer Assessment Sit to and From Stand Sit to and from Stand Independent Equipment Transfer Assistive Device Gait Belt,Front Wheeled Walker Orthotic/Prosthetic Devices or Brace: No Transfer Ability Level of Assist Independent Gait Assessment Gait Gait Assistance Required: Independent Distance (Feet) 100 Able to Maintain Weight Bearing Status Yes During Gait Assistive Devices Assistive Device Gait Belt,Front Wheeled Walker Orthotic/Prosthetic Devices or Brace: No Gait Deviations General Gait Pattern Antalgic,Decreased Stride Length,Flexed Trunk Factors Limiting Gait Function Factors Limiting Gait Function Decreased Strength,Limited Range of Motion,Pain Comments Gait Comments Good gait post-op with step- through and heel strike and only decreased knee flexion and step-length with gait Stair Climbing Assessment Evaluation Level of Assist On Stairs Independent Devices Stair Climbing Assistive Devices Right Railing Technique/Endurance Stair Climbing Direction Ascend and Descend Stair Climbing Technique Step to Step Number of Steps Climbed 3 Query Text: Stair Climbing Set # Repetitions (reps) 1 Comments Stair Climbing Comments 1 PT-Balance Assessment Sitting Balance and Reactions Static Sitting Balance Ability Normal Dynamic Sitting Balance Ability Normal Standing Balance and Reactions Static Standing Balance Ability Good Dynamic Standing Balance Ability Good Device Used RW M5 PT-IP Objective Assessments Start: 01/08/24 08:33 Freq: NEEDED Status: Active Protocol: Document 01/08/24 08:35 MB (Rec: 01/08/24 08:52 MB [id number]) Orientation Orientation/Cognition Level of Alertness Alert Orientation Name,Age,Birthday,Month,Date, Year,Day of Week,Place, Situation Language Function Ability No Deficits Noted Safety Awareness Understands Safety Issues Memory Description No Deficits Noted Gross Range of Motion Lower Extremity ROM Assessment Right Impaired Impairments ROM sitting grossly 20-90 deg with pt able to actively extend for LAQ to -20 deg Strength Lower Extremity Strength Assessment Right Impaired Comments Strength Comments Right LE functional for gait and no buckling M6 PT-IP Treatment Start: 01/08/24 08:33 Freq: NEEDED Status: Active Protocol: Document 01/08/24 08:35 MB (Rec: 01/08/24 08:52 MB [id number]) Physical Therapy Treatment Exercises Exercises Ankle Pumps,Straight Leg Raises Education Education Provided Weight Bearing Status,Post-Op Packet,Safety M7 PT-IP Assessment and Plan Start: 01/08/24 08:33 Freq: NEEDED Status: Active Protocol: Document 01/08/24 08:35 MB (Rec: 01/08/24 08:52 MB [id number]) PT Summary Assessment and Plan Potential Rehabilitation Potential Excellent Status of Condition at Evaluation Stable Summary Progress Towards Goals Safe For Discharge Assessment Summary Pt is a pleasant 68 y/o male presenting with low pain and good mobility post-op day one right TKA. He is I with bed mobility, transfers, gait with RW and steps using right rail . He has OPPT set-up. Will d/c acute PT and recommend up with nsg clearance with RW. Frequency of Treatment Frequency Of Treatment Discharge Weight Bearing Status Weight Bearing Status Weight Bear as Tolerated Recommendations To Nursing Amount of Assist Needed Standby Assistance Discharge Recommendations PT Discharge Recommendations Home with Assistance, Outpatient PT Transportation Needs at Discharge Private Vehicle
[2024-01-08] MEDS: METFORMIN HCL 500 MG TABLET 1000 MG PO (08:53)
--- NOTE | 2024-01-08 08:53 | OT.IP.EVAL ---
Current Diagnoses Unilateral primary osteoarthritis, right knee (01/07/24) Surgery Performed Operation Date: 01/07/24 11:45 Actual Procedures p RIGHT Total Knee Arthroplasty with Robot(Right) - Karla Chandra MD Past Medical History (Last Updated 01/01/24 @ 09:22 by Jessica Fairbanks, RN) Acid reflux (08/26/22) Asthma (Unknown) Diabetes (Unknown) Erectile dysfunction (Unknown) History of COVID-19 (~2021) HLD (hyperlipidemia) Hypertension (Unknown) Intractable hiccups Surgical History (Last Updated 01/01/24 @ 08:30 by Jessica Fairbanks, RN) History of colonoscopy History of total left knee replacement (03/07/23) Hx of eye surgery Status post knee surgery Occupational Therapy Inpatient Evaluation/Re-Eval M1 PT/OT-IP Prior Functional Status Start: 01/08/24 09:27 Freq: NEEDED Status: Active Protocol: Document 01/08/24 09:27 [facility] (Rec: 01/08/24 09:39 [facility] [id number]) Medical Review Prior Functional Status Medical History Reviewed Yes Diet/Fluid Consistency Regular Communication WNLs Mobility and Gait I Activities of Daily Living and IADL's I Social History Household Members spouse Living Arrangements House Number of Floors (Floors) Two Floors Number of Stairs To Enter/Railing? 3 steps right rail enter and 2 sets of 6 steps with right rail to get to bed room Home Environment High Toilet,Walk in Shower,Tub /Shower,Bidet Home Equipment Front Wheel Walker,Straight Cane,Shower Seat with Backrest ,Hand Held Shower Employment Status Retired Additional Social History Comment Pt's to be able to assist him at home. M2 OT-IP Current Condition Start: 01/08/24 09:27 Freq: Status: Active Protocol: Document 01/08/24 09:27 [facility] (Rec: 01/08/24 09:39 [facility] [id number]) Occupational Therapy Current Condition Current Condition Evaluation Date 01/08/24 Treatment Diagnosis S/P R TKA Diagnosis Onset Date 01/07/24 M3 OT- IP Subjective and Pain Start: 01/08/24 09:27 Freq: Status: Active Protocol: Document 01/08/24 09:27 [facility] (Rec: 01/08/24 09:39 [facility] [id number]) OT- Subjective Occupational Therapy Visit Type Type Initial Evaluation Visit Start Time 08:30 Visit Stop Time 08:53 Occupational Therapy Visit Comments Patient Comments Pt agreed to get up. Patient/Caregiver Goals TO go home. OT Pain Assessment Pain When Pain Assessed At Rest Pain Present Pain Present Pain Reported Location right knee Intensity 1 Scale Used Numeric (0 - 10) M4 OT- IP ADL's Start: 01/08/24 09:27 Freq: Status: Active Protocol: Document 01/08/24 09:27 [facility] (Rec: 01/08/24 09:39 [facility] [id number]) OT XTH-Jivk-Hchaxud General Evaluation Self-Feeding Ability Independent OT ADL-Grooming Comments OT Grooming Comments Pt states did prior. OT ADL-Oral Care Comments Oral Care Comments Pt states did prior. OT ADL-Dressing General Eval Upper Body Dressing Ability Independent Lower Body Dressing Ability Standby Assistance Comments OT Dressing Comments Pt educated to dress his RLE first and take out last. OT ADL-Toileting Comments OT Toileting Comments Pt states has been using the toilet. Educated if standing able to use the FWW over the toilet. OT ADL-Bathing Comments OT Bathing Comments Pt states to do at home. Able to educate pt to cover his dressing for showering needs. M5 OT- IP IADL's Start: 01/08/24 09:27 Freq: Status: Active Protocol: Document 01/08/24 09:27 [facility] (Rec: 01/08/24 09:39 [facility] [id number]) OT-Instrumental Activities of Daily Living Deficits IADL Deficits Identified Deficits Home Safety Awareness Awareness of Need for Assistance at Home Good Awareness Ability to Problem Solve Emergency Able to Problem Solve Situations Medication Management Medication Management No Deficits Identified Money Management Money Management No Deficits Identified Meal Preparation Meal Preparation Caregiver Provides Assist Water Resources Engineer Water Resources Engineer Caregiver Provides Assist M6 OT- IP Functional Cognition Start: 01/08/24 09:27 Freq: Status: Active Protocol: Document 01/08/24 09:27 [facility] (Rec: 01/08/24 09:39 [facility] [id number]) Cognitive Factors Limiting Selfcare Function Cognitive Ability Level of Alertness Alert Patient Orientation Name,Age,Birthday,Month,Date, Year,Day of Week,Place, Situation Attention Span Ability Capable of Focused Attention, Capable of Sustained Attention Ability to Follow Commands Able to Follow Multi-Step Commands Cognitive Comments Cognitive Assessment Comments Pt intact, just needing occasional VC to slow down and keep the FWW in front of him. OT- Vision and Hearing OT- Hearing Assessment OT- Hearing Assessment WFL OT- Vision Assessment Visual Acuity Glasses All The Time Visual Attentiveness WFL Occular Pursuits WFL M7 OT- IP Mobility and Balance Start: 01/08/24 09:27 Freq: Status: Active Protocol: Document 01/08/24 09:27 [facility] (Rec: 01/08/24 09:39 [facility] [id number]) OT- Bed Mobility Assessment Supine to Sit Supine to Sit Assist Independent Sit to Supine Sit to Supine Assist Independent OT-Transfer Assessment Sit to and From Stand Sit to and from Stand Independent Transfers Transfer Ability Independent Technique Transfer Destination Bed,Chair Transfer Technique Stand Step Pivot Devices Transfer Assistive Devices Gait Belt,Front Wheeled Walker Comments Mobility Comments Pt independent with all mobility needs. OT- Balance Assessment Sitting Balance and Reactions Static Sitting Balance Ability Normal Dynamic Sitting Balance Ability Normal Standing Balance and Reactions Static Standing Balance Ability Normal Dynamic Standing Balance Ability Good M8 OT- IP Objective Assessments Start: 01/08/24 09:27 Freq: Status: Active Protocol: Document 01/08/24 09:27 [facility] (Rec: 01/08/24 09:39 [facility] [id number]) OT Gross Range of Motion Upper Extremity Range of Motion Assessment Within Functional Limits OT Strength Upper Extremity Strength Assessment Within Functional Limits M9 OT- IP Assessment and Plan Start: 01/08/24 09:27 Freq: Status: Active Protocol: Document 01/08/24 09:27 [facility] (Rec: 01/08/24 09:39 [facility] [id number]) OT Summary Assessment and Plan Potential Rehabilitation Potential Excellent Analytic Complexity at Evaluation Low Summary OT Impairments Pain,Balance,Functional Mobility,Bathing Progress Towards Goals Progressing Toward Goals Assessment Summary Pt low complexity and main barriers are mild pain, initial vc to keep the FWW in front of him and able to do dress and do the steps on his own today. Pt looking to go home with his to assist and have outpt PT. Goals Bathing Goal Independent Shower Transfer Goal Independent Days to Meet Goals 2 Frequency of Treatment Frequency Of Treatment Once a Day Treatment Plan OT Treatment Plan ADL Training,Functional Mobility,Patient/Family Education,Discharge Planning Discharge Recommendations OT Discharge Recommendations Home with Assistance, Outpatient PT Transportation Needs at Discharge Private Vehicle
[2024-01-08] MEDS: DOCUSATE 100 MG CAPSULE PO (08:54)
[2024-01-08] MEDS: ACETAMINOPHEN 325 MG TABLET 650 MG PO (08:54)
[2024-01-08] MEDS: ASPIRIN EC 81 MG TABLET PO (08:54)
[2024-01-08 08:55] VITALS: BP 121/80; PULSE 81
[2024-01-08] MEDS: METOPROLOL IR 50 MG TABLET PO (08:55)
[2024-01-08] MEDS: LOSARTAN 25 MG TABLET 50 MG PO (08:55)
--- NOTE | 2024-01-08 09:34 | CM.DANOTE ---
Initial DCP Assessment Visit Note Reviewed EMR and team rounds for status updates. Met with pt at bedside to introduce self and role, pt was found to be dressed, preparing to work with PT, then will d/c home. He resides independentlyly in his own home w/spouse here in [place]. Spouse will drive him home after he is done working with PT/OT. Payor: Medicare Attending: Dr. Chandra Pt is a 68 year-old M who [facility] bilateral [facility]. He had a prior L-knee total arthroplasty on 03/07/23, and recovered well from that surgery. He then discussed completing his R-knee total arthroplasty w/Dr. Chandra, which was completed yesterday. He is doing well post-op day 1, did well with working with therapies, and has already set-up his OP PT therapy visits. No further DCP needs identified for assistance at this time. Discharge Planning/Care Management Advanced directive, confirm from FAMILY Start: 01/07/24 18:24 Freq: Q24H Status: Active Protocol: Document 01/07/24 21:00 SR (Rec: 01/07/24 23:52 SR [id number]) Advance Directive, confirm on record Time 21:00 Person contacted Patient Copy received No CM Discharge Assessment Start: 01/08/24 09:32 Freq: Status: Active Protocol: Document 01/08/24 09:33 DPL (Rec: 01/08/24 09:34 DPL [id number]) Discharge Planning Assessment Assigned Flight Surveyor CHUCK Lai Advance Directives? Yes Advance Directives on File No History Provided By Patient,Medical Record Has Patient been admitted in last 30 No days? Prior Living Arrangements House Household Members spouse Type of transporation used prior to Drives own vehicle admit Independent with ADL's Yes Is patient alert and oriented? Yes Caregiver for Another No DME Already Rented / Owned FWW / Walker Patient/Family Preference OP PT Therapy Barriers to Discharge No Discharge Plan Home Community Services Physical Therapy Transportation Arrangement Spouse Referrals Initiated None needed Whiteboard Updated in Patient Room with Yes name and ext. # of Flight Surveyor Review Status In Process Please Provide Date Initial DC 01/08/24 Assessment Was Performed Pre-Anesthesia Assessment Start: 01/01/24 08:26 Freq: Status: Complete Protocol: Document 01/01/24 08:26 [facility] (Rec: 01/01/24 09:37 [facility] [id number]) Pre-Anesthesia Assessment Patient Information Reviewed Via Phone Assessment Assessment Completed With Patient Comment Pt states surgeon using labs/ EKG from surgery 03/07/23 Primary Care Provider trena Stinson Seen Emergency,Orthopedist Primary Language Cymraes Preferred Language Cymraes Riddler Operator Required No Height 180.34 cm Weight 78.018 kg Body Mass Index (BMI) 24.0 Hearing Ability Normal Visual Assist Glasses Dentition Type Teeth, Natural Present,Partial - Lower,Full- Upper Barriers to Learning Visual Comment Left eye minimal vision r/t corneal laceration Hx Anesthesia Reactions No Hx Family Anesthesia Reaction No Hx Malignant Hyperthermia No Hx Blood Transfusions No Hx Blood Transfusion Reaction No Anesthesia Review Requested No Heater Operator Helper No alcohol intake current alcohol intake frequency 0-2 drinks per day Smoking Status Former smoker how long ago did patient quit smoking Quit over 10 years ago Substance Use Type does not use Pain Present Pain Reported Musculoskeletal Symptoms Abnormal Gait,Back Pain, Difficulty Walking,Joint Pain History of Falling (Recent or History of Yes ) Patient is completely paralyzed or No completely immobile Mental Status Oriented to own ability Is patient on oxygen? No Does patient have PICHARDO/SOB No Hx Sleep Apnea No CPAP/BIPAP use not prescribed Currently Taking a Beta Ravinder Yes: Metoprolol Can You Climb a Flight of Stairs Without Yes SOB Hx Chest Pain No Hx SOB No Hx Syncope or Dizziness No Anti-Coagulant Therapy No Has a Drapery Estimator No Cardiac Testing No Hx Pacemaker/ICD No Pacemaker Rep Required? No Cardiac Clearance Received Not Applicable Diet Type At Home Regular Dysphagia No Gastrointestinal Symptoms None Chronic UTI No Urinary Catheter Present No Hx Urinary Self Catheterization No Diabetes Yes: Pt checks twice a week Hx Drug Resistant Organism No Presence of External or Internal Medical Yes: LT knee prosthesis, Devices ureteral stent Received a COVID vaccine? Yes Received all doses? Yes Marital Status Lives With spouse Current Living Arrangements House Number of Floors (Floors) Two Floors Support System Spouse Does the Patient Have Assistance After Yes Surgery Patient Discharge Plan Description Return Home Comment Pt not advised on length of stay per surgeon Feels Safe in Current Environment Yes Been Physically Hurt or Threatened By a No Person in Current Environment Do you have thoughts of harming yourself None or others? Are you currently considering suicide? No Do you have a plan to hurt yourself or No Plan others? Do You Have Any Spiritual Beliefs That No May Affect Your HC Choices? Do You Have Any Cultural Practices That No May Affect Your HC Choices? Comment Anabaptist Who Can We Speak to About Patient's Care Family, friends Identifying Code for Release of Patient Declines to issue Information Health Care Proxy/Next of Kin Nan () Health Care Proxy Emergency Contact Name Nan () Emergency Contact Advance Directives? No Power of Gis Application Developer No PAC Instructions Assistance for 24 hours post- op,Diabetes instructions, Durable medical equipment, Medications to take/avoid, Nasal antibiotic,No ETOH/ petroleum product on skin DOS, NPO,Post-op transportation,Pre -surgical wash,Sensory aids, Sturdy shoes/comfortable clothes,Do not bring valuables and remove jewelry
--- NOTE | 2024-01-08 09:41 | PC.NURSE ---
Discharge note: Patient discharged per MD order, discharge instructions given to patient and spouse. Discussed importance of F/U with Ortho, mobility precautions, new medications and home safety. Both verbalized understanding of instructions. Home via private vehicle accompanied by spouse.
--- NOTE | 2024-01-08 15:17 | P.DS_ITS ---
History of Present Illness History of Present Illness Chief complaint: right TKA robot 01/06 Narrative: Pj palomo a pleasant 68-year-old is postop day #1 status post right total knee arthroplasty by Dr. Chandra. Today patient reports he is doing very well, mild pain only and states that it is well controlled with oral oxycodone. Reports he has been urinating well without issue, has not seen physical therapy today but has been able to ambulate to the bathroom on his own with the use of a walker. Patient lives at home with who is willing and able to aid in his postop care. Has postop PT appointments already set up, has walker at home, has postop pain medications at home already as well. Patient feels stable enough to discharge to home today with his . Denies fever, chills, chest pain, shortness of breath, nausea, vomiting. Operative Date/Time/Diagnoses Date of procedure: 01/07/24 Time of procedure: 12:45 Pre-op diagnosis: Right knee arthritis Post-op diagnosis: same Procedure & Clinicians Procedure: Right total knee arthroplasty, robotic assisted CPT code 55096 Same procedure as scheduled: Yes Indications: The patient has significant pain associated with osteoarthritis of the right knee. It is associated with morning stiffness. Pain interferes with daily normal function including ambulation standing and any activities that are weight-bearing. It interferes with sleep. There is crepitation with range of motion. There is marked joint line tenderness. X-rays show significant levels of osteoarthritis. Double attempted previous conservative treatment has been rendered. The patient has failed exercise program, medications and previous injections. Patient is indicated for total knee arthroplasty. The risks and benefits of the procedure have been discussed with the patient and given the opportunity to ask questions. The risks of surgery include but are not limited to infection, malunion, nonunion, persistence of pain, damage to nerves and blood vessels, posttraumatic arthritis, DVT, PE, cardiopulmonary complications and . The patient expressed a thorough understanding of the risks and benefits of surgery and has elected to proceed. Consent was signed. Surgeon: Karla Chandra Construction Cost Estimator: Lang Burnett Anesthesia Type: General, Peripheral nerve block and Local Discharge Providers Provider Discharge Date: 01/08/24 Primary care physician: Doctor Julisa MD Consults: 01/07/24 17:33 Consult to Discharge Planning Routine Comment: Consult to Occupational Therapy Evaluate & Treat Comment: Physician Instructions: Evaluate and treat Consult to Physical Therapy Evaluate & Treat Comment: Physician Instructions: postop TKA protocol Discharge provider: Magda Chong PA-C Summary Hospital Course Discharge Diagnosis: Right knee osteoarthritis status post right total knee arthroplasty, stable Hospital Course: Uncomplicated hospital course. Exam Vital Signs (past 8 hours): - 01/08/24 08:55 Pulse Rate 81 Blood Pressure 121/80 Oxygen Delivery Method Room Air Oxygen Flow Rate 0 Narrative Exam Narrative: Lying in bed comfortably during our interview today. SCDs on and functioning. Resp Effort & Inspection: normal respiratory effort and able to speak in complete sentences Cardio Rate: regular rate Other: Extremities are well perfused. Brisk capillary refill, pulses intact. Skin Other: Clean, dry and intact Aquacel dressing in place over the right anterior knee without drainage. Neuro General: patient alert, patient awake and patient oriented x3 Other: Gross sensation intact throughout bilateral lower extremities. Extrem Other: 5/5 strength with DF, PF, EHL bilaterally. Calves soft and non-tender bilaterally. Psych Appearance: grossly normal Objective Labs 01/08/24 05:50 Labs: Laboratory Results - last 24 hr 01/08/24 05:50 Hgb 12.8 L Hct 37.4 L PFSH Medical History (Updated 01/01/24 @ 09:22 by Jessica Fairbanks RN) History of COVID-19 (~2021) HLD (hyperlipidemia) Intractable hiccups Acid reflux (08/26/22) Erectile dysfunction (Unknown) Hypertension (Unknown) Asthma (Unknown) Diabetes (Unknown) Surgical History (Updated 01/01/24 @ 08:30 by Jessica Fairbanks RN) History of total left knee replacement (03/07/23) Hx of eye surgery History of colonoscopy Status post knee surgery Family History Father Hypertension Grandfather Hypertension Social History household members: spouse Smoking Status: Former smoker alcohol intake: current Discharge Assessment & Plan Assessment and Plan Assessment: Stable s/p R TKA Plan of Treatment: 1) plan to discharge to home today with pending PT evaluation. 2) continue multimodal pain management with ice to the knee for additional pain control. Has postop pain medications at home already. 3) ASA b.i.d. for DVT prophylaxis. 4) Start outpatient physical therapy to work on range of motion and mobility. Weightbearing as tolerated. 5) Keep dressing intact, clean, dry until 2 week postop appointment. No soaking the incision site in pools or tubs. No topical ointments or creams to the incision site. 5) Follow up at [facility] in 2 weeks for a postop appointment and wound check. All patient's questions were answered, he demonstrates understanding and is in agreement with the plan. Call our office if any questions or concerns arise. Discharge Plan Discharge Plan Patient Disposition: Home Discharge orders & Medications Discharge Orders: Discharge (Order); Ordered 01/08/24 Ordered By: Magda Chong Prescriptions: Continued PreserVision AREDS 1 EACH capsule 1 sgl PO BID Qty: 0 pioglitazone 30 mg Tablet 30 mg PO DAILY finasteride 5 mg Tablet 5 mg PO BEDTIME Ozempic 1 mg/dose (4 mg/3 mL) Pen Injector 1 mg SUBCUT QWEEK tamsulosin [Flomax] 0.4 mg capsule 0.4 mg PO BEDTIME atorvastatin 10 mg Tablet 10 mg PO BEDTIME metformin 1,000 mg Tablet 1,000 mg PO BID metoprolol tartrate 50 mg Tablet 50 mg PO BID empagliflozin 25 mg Tablet 25 mg PO QAM losartan [Cozaar] 25 mg tablet 50 mg PO QAM timolol maleate 0.5 % drops 1 drp EYE-BOTH DAILY Patient Comments: [NO ORIGINAL SIG] dorzolamide 2 % drops 1 drp EYE-BOTH BID Patient Comments: [NO ORIGINAL SIG] (DME) lancing device [facility] MISCELLANEOUS Follow up/Referrals: Karla Chandra MD [Physician] - As previously scheduled (Follow up as scheduled at [facility].) Doctor Egan MD [Primary Care Provider] - Diet/Activity/Treatments Diet: Diet as Tolerated Other treatments: The patient will receive prescriptions from the clinic including aspirin 81 mg b.i.d. which will take for 6 weeks for DVT prophylaxis. He will use ketorolac 10 mg tablets 4 times a day for 5 days after surgery as a strong anti-inflammatory. Received a prescription for oxycodone 5 mg tabs which he may take 1-2 every 4 hours as needed for pain. Dressing/Wound care: -Remove the Sam wrap 48 hours after surgery. -Keep Aquacell dressing in place until postoperative follow-up office visit. -you may see some drainage on the bandage, this is ok. If it is leaking or saturated, then the dressing can be changed to clean gauze or a clean surgical dressing from a pharmacy or reinforced with additional gauze and paper tape or dressings over the top. Otherwise, just keep dressing in place until follow up. -Okay to shower. Keep wound out of direct water stream. No soaking or submerging until all the scabs fall off (approximately 6 weeks). -Please call the office if dressing becomes significantly wet, soiled, or saturated. Activities: -Weight-bearing as tolerated. Use front wheeled walker, and progress to cane when safe. -Continue with home exercises as directed by your physical therapist. -Elevate ?toes above the nose if you have significant swelling in your lower leg. (A wedge pillow is easiest.) -Ice your incision as needed for pain/inflammation/swelling. Protect your skin with a folded pillowcase. Follow-up: -Follow-up with your surgeon or PA in the office in 10-14 days after surgery. -Follow-up with your surgeon 6 weeks postoperatively. Call the office if you have chest pain, shortness of breath, significant swelling that will not resolve with elevating, fever over 101?, significantly worsening pain. [facility]: [phone] You have been discharged with medications. These have already been sent to your pharmacy. Pain include pain medications: Oxycodone take 5 mg orally every 4 hours as needed for pain. If your pain is more severe you may take up to 2 or a maximum 3 pills (15 mg) every 4 hours for pain. Take the smallest dose necessary. Narcotic medication can make you feel constipated. You can get csth-xgh-blbckmx stool softener such as docusate sodium-Colace at a pharmacy to help with this. You also have prescriptions for ibuprofen 800 mg take this 3 times a day for least the 1st 10 days after surgery to help with pain control. And acetaminophen (Tylenol) take 500-1000 mg 3 times a day for pain control. You also have a prescription for Zofran (ondansetron) this is a strong anti nausea medication that can be taken up to every 8 hours as needed for nausea Additionally will take a baby aspirin 81 mg twice a day (morning and night) to help prevent blood clots If you have been discharged with ketorolac (toradol) this is a strong anti- inflammatory, do not take ibuprofen/meloxicam/mortin or other NSAIDS while on ketorolac. Once your ketorolac prescription is finished, you may restart taking other NSAIDs again. narcotic pain medication, tylenol and aspirin are fine to continue while on ketorolac. Skin/Wound/Dressing Care Report to your healthcare provider any signs of infection, such as:: chills, fever, night sweats, increased pain, unusual drainage and unusual redness Visit Report/Discharge Packet Instructions: DI for Knee Replacement, DI for Prescription Opioid Use Stand Alone Forms: Patient Portal/API, Surgery Discharge Discharge Data Primary Care Provider: Miscellaneous,Doctor Attending Provider: Karla Chandra
== END 2024-01-08 10:02 | disposition home or self-care (01) ==
LOC: OR 09:53 → AC 09:54
PROVIDERS: Referring Provider Orthopaedic Surgery Foot and Ankle Surgery; Visit Provider Orthopaedic Surgery Foot and Ankle Surgery
PROC: 0SRC0JZ Replacement of Right Knee Joint with Synthetic Substitute, Open Approach (ICD-10-PCS; CPT 27447; principal; 2024-01-07 11:45)
DX: M17.11 Unilateral primary osteoarthritis, right knee (principal); G89.18 Other acute postprocedural pain; M25.761 Osteophyte, right knee; E11.9 Type 2 diabetes mellitus without complications; I10 Essential (primary) hypertension; Z79.84 Long term (current) use of oral hypoglycemic drugs
CPT/HCPCS: 27447; 20985; 36415; 64450; 73560; 82962; 85014; 85018; 97161; 97165; 97535; C1776; C9290; J0171; J0690; J1100; J1815; J1885; J2250; J2405; J2704; J3010

== ENCOUNTER 2024-05-21 07:32 | Day surgery (SDC) | payer MEDICARE, OTHER, SELFPAY ==
[2024-01-07 18:15] VITALS: BMI 24.0
--- NOTE | 2024-05-21 | PATH_ITS ---
[facility] Accession Number: [id number] No. of containers..01 Tissue . 01 Material submitted: . colon - DESCENDING COLON POLYP . 01 Diagnosis: DESCENDING COLON POLYP: Hyperplastic polyp. MRV 05/26/2024 1240 Local . 01 Electronically signed: . Yosvany Wilkes MD, PhD, Pathologist NPI- [id number] . 01 Gross description: . DESCENDING COLON POLYP: Received in formalin is 1 fragment(s) of johansen, soft tissue measuring 0.4 x 0.2 x 0.1 cm submitted entirely in 1 cassette(s) /LIO 05/24/2024 2321 Local . 01 Pathologist provided ICD-10: K63.5 . 01 CPT . 721854 Specimen Comment: A courtesy copy of this report has been sent to [phone] Performed at: [address] [facility] [address], [place], [place] [id number] MD Mauro Pandey MD Phone: [phone]
[2024-05-21 08:10] VITALS: BP 132/87; PULSE 78; RESP 16; TEMP 36.6; O2SAT 99
[2024-05-21] MEDS: LACTATED RINGERS 1,000 ML 150 ML IV (08:26)
--- NOTE | 2024-05-21 08:50 | P.HP_ITS ---
History of Present Illness History of Present Illness Date Patient Seen: 05/21/24 Time Patient Seen: 08:51 Chief complaint: SDC Narrative: Last scope 5 years ago. Denies FH or self history for colon cancer or polyps. [facility] Medical History History of COVID-19 (~2021) HLD (hyperlipidemia) Intractable hiccups Acid reflux (08/26/22) Erectile dysfunction (Unknown) Hypertension (Unknown) Asthma (Unknown) Diabetes (Unknown) Surgical History History of total left knee replacement (03/07/23) Hx of eye surgery History of colonoscopy Status post knee surgery Family History Father Hypertension Grandfather Hypertension Social History household members: spouse Smoking Status: Former smoker alcohol intake: current Meds Home Medications and Allergies Home Medications Medication Instructions Recorded Confirmed Type vitamins A,C,Q-iapz-ggiruw 4,296 1 sgl PO BID ##0 05/15/16 01/01/24 History mcg-226 mg-90 mg capsule (PreserVision AREDS) atorvastatin 10 mg tablet 10 mg PO BEDTIME 02/27/23 01/07/24 History empagliflozin 25 mg tablet 25 mg PO QAM 02/27/23 01/07/24 History losartan 25 mg tablet (Cozaar) 50 mg PO QAM 02/27/23 05/21/24 History metformin 1,000 mg tablet 1,000 mg PO BID 02/27/23 05/21/24 History metoprolol tartrate 50 mg tablet 50 mg PO BID 02/27/23 05/21/24 History dorzolamide 2 % eye drops 1 drp EYE-BOTH BID 09/06/23 01/07/24 History lancing device 09/06/23 09/06/23 History timolol maleate 0.5 % eye drops 1 drp EYE-BOTH DAILY 09/06/23 01/01/24 History finasteride 5 mg tablet 5 mg PO BEDTIME 01/01/24 01/07/24 History pioglitazone 30 mg tablet 30 mg PO DAILY 01/01/24 01/07/24 History semaglutide 1 mg/dose (4 mg/3 mL) 1 mg SUBCUT QWEEK 01/01/24 01/01/24 History subcutaneous pen injector (Ozempic) tamsulosin 0.4 mg capsule (Flomax) 0.4 mg PO BEDTIME 01/01/24 01/01/24 History sodium,potassium,mag sulfates 17.5 See Rx Instructions PO .COMPLEX 04/21/24 Rx gram-3.13 gram-1.6 gram oral soln #354 mL (Suprep Bowel Prep Kit) Allergies Allergy/AdvReac Type Severity Reaction Status Date / Time No Known Drug Allergies Allergy Verified 05/21/24 08:20 Review of Systems Review of Systems ROS: Yes All systems reviewed with the patient and are negative except as otherwise documented Exam Vital Signs (past 8 hours): - 05/21/24 08:10 Temperature 98 F Pulse Rate 78 Respiratory Rate 16 Blood Pressure 132/87 Pulse Oximetry 99 Oxygen Delivery Method Room Air Oxygen Delivery Method Room Air Const General: cooperative, healthy appearing and comfortable [facility] Head: normocephalic and atraumatic Eyes Sclera: sclerae normal Neck Neck: trachea midline Chest Chest: normal inspection of the chest Resp Effort & Inspection: normal respiratory effort and able to speak in complete sentences Cardio Rate: regular rate Rhythm: regular rhythm GI Palpation: soft and No tender Skin General: turgor normal and No atrophy Neuro General: patient alert, patient awake and patient oriented x3 Cognition: normal cognition Psych Mental Status: mental status grossly normal Affect: normal affect Judgment: judgment good Assessment & Plan Assessment & Plan narrative: Colon cancer screening with colonoscopy using anesthesia Time-Based Coding :: [TOTAL MINUTES] spent with patient and on the chart (including review of chart, obtaining history, exam, reviewing outside data, placing orders, documenting exam and treatment plan, and counseling patient) on [DATE].
--- NOTE | 2024-05-21 08:53 | PM.OP.COLON ---
Operative Date/Time/Diagnoses Date of procedure: 05/21/24 Time of procedure: 08:54 Pre-op diagnosis: colon cancer screening Post-op diagnosis: same Procedure & Clinicians Study performed: Colonoscopy with cold forceps polypectomy using anesthesia Same procedure as scheduled: Yes Indications: Colon cancer screening Surgeon: Sosa Webster Procedure Notes Procedure in detail: Preop diagnosis: Colon cancer screening Postop diagnosis: Same Operative procedure: Colonoscopy with cold forceps polypectomy using anesthesia Surgeon: Yolanda Webster MD Findings: Single sessile polyp 3 mm in size descending colon, no diverticulosis. He does have significant perianal scarring of the skin suggestive of history of fistula versus perirectal abscess. Procedure: Patient placed in a lateral position. Rectal exam performed showing normal tone no masses. Scarring described as above. Scope was inserted into the rectum and advanced to ileocecal valve with minimal difficulty. Insufflation extraction scope and the above findings. Retroflex was included in the rectum. Impression: Single small sessile polyp 3 mm in size in the descending colon. Plan: Repeat colonoscopy in 5 years Findings: polyp(s) Specimen(s): other (3 mm polyp in the descending colon) Complications: none Post-procedure Recommendations: Colonoscopy in 5 years Follow up: as needed Disposition: PACU
[2024-05-21 09:07] VITALS: BP 109/72; PULSE 78; RESP 17; TEMP 36.2; O2SAT 95
[2024-05-21 09:12] VITALS: BP 101/67; PULSE 76; RESP 20; O2SAT 97
[2024-05-21 09:17] VITALS: BP 104/73; PULSE 75; RESP 14; O2SAT 99
[2024-05-21 09:22] VITALS: BP 113/80; PULSE 74; RESP 14; TEMP 36.9; O2SAT 98
[2024-05-21 09:28] VITALS: BP 122/72; PULSE 72; RESP 16; TEMP 36.3; O2SAT 98
== END 2024-05-21 10:07 | disposition home or self-care (01) ==
PROVIDERS: Referring Provider Surgery; Visit Provider Surgery
PROC: 0DJD8ZZ Inspection of Lower Intestinal Tract, Via Natural or Artificial Opening Endoscopic (ICD-10-PCS; CPT 45378; principal; 2024-05-21 08:45)
DX: Z12.11 Encounter for screening for malignant neoplasm of colon (principal); K63.5 Polyp of colon
CPT/HCPCS: 45380; J2704